=== PATIENT | female | born 1985 | race Two or more races ===

== ENCOUNTER 2019-12-14 11:01 | Emergency (ER) | payer OTHER, SELFPAY ==
--- NOTE | 2019-12-14 | ECG_ITS ---
Test Reason : CHEST PAIN Blood Pressure : / mmHG Vent. Rate : 079 BPM Atrial Rate : 079 BPM P-R Int : 140 ms QRS Dur : 100 ms QT Int : 420 ms P-R-T Axes : 004 022 002 degrees QTc Int : 481 ms Normal sinus rhythm Incomplete right bundle branch block Abnormal ECG When compared with ECG of 07-JUL-2017 16:44, Vent. rate has decreased BY 47 BPM Nonspecific T wave abnormality no longer evident in Lateral leads Referred By: Generic ED Physician Electronically Signed By:TYRONE GIMENEZ MD
[2019-12-14 12:40] VITALS: BP 146/87; PULSE 79; RESP 16; TEMP 36.9; O2SAT 100; BMI 29.2
--- NOTE | 2019-12-14 13:57 | XR_ITS ---
EXAMINATION: XR CHEST CLINICAL INFORMATION: Chest wall pain COMPARISON: Chest radiographs 03/23/2019, 07/07/2017. TECHNIQUE: Portable upright AP view of the chest was obtained. FINDINGS: The lungs are clear. The vascularity is normal. There is no pneumothorax or pleural reaction or effusion. No airspace consolidation. The heart is normal in size. The hilar and mediastinal contours are unremarkable. There is gentle levocurvature thoracic spine which may be positional. IMPRESSION: Unremarkable examination.
[2019-12-14 14:00] VITALS: BP 139/92; PULSE 84; RESP 16; O2SAT 99
[2019-12-14 14:09] LABS: MANUAL DIFF FLAG NO
[2019-12-14 14:11] LABS: Basophils Percent Auto 0.7 % (0-2); Eosinophils Absolute Auto 0.1 X10*3/uL (0.0-0.4); Hematocrit 40.9 % (37-47); Hemoglobin 13.5 g/dl (12.0-16.0); Imm Gran Abs Auto 0.04 X10*3/uL (0.00-0.03); Imm Gran Pct Auto 0.7 % (0.0-0.4); Lymphocytes Absolute Auto 1.7 X10*3/uL (1.2-4.9); Lymphocytes Percent Auto 28.2 % (20-40); Mean Platelet Volume 10.8 fL (9.4-12.3); Monocytes Absolute Auto 0.4 X10*3/uL (0.1-1.2); Monocytes Percent Auto 6.4 % (2-11); Neutrophils Absolute Auto 3.7 X10*3/uL (2.0-8.3); Platelet Count 309 X10*3/uL (160-400); Red Blood Count 4.65 X10*6/uL (4.20-5.50); Red Cell Distribution Width 12.7 % (11.0-16.0)
[2019-12-14] MEDS: 0.9 % Sodium Chloride 1,000 ML 999 ML IVCONT (14:21)
[2019-12-14 14:31] LABS: Glucose Urine UA NEG (NEG); Leukocyte Esterase Urine NEG (NEG); Nitrite Urine NEG (NEG); PH 6.5 (5.0-8.0); Specific Gravity - Urine >= 1.030 (1.005-1.025); Urine Blood 1+ (NEG); Urine Ketones NEG (NEG); Urine Protein 2+ MG/DL (NEG-TRACE)
[2019-12-14 14:33] LABS: Appearance Urine CLOUDY; Color Urine YELLOW
[2019-12-14 14:34] LABS: UPreg QC Valid YES; Urine Pregnancy NEGATIVE (NEGATIVE)
[2019-12-14 14:41] LABS: Alanine Aminotransferase 44 U/L (0-31); Albumin Level 4.6 g/dL (3.5-5.0); Alkaline Phosphatase 87 U/L (39-117); Anion Gap 12 (12-20); Aspartate Amino Transferase 32 U/L (5-31); Bilirubin Total 0.6 mg/dL (0.0-1.0); Blood Urea Nitrogen 13 mg/dL (9-16); Calcium 9.3 mg/dL (8.4-10.2); Carbon Dioxide 26 mmol/L (22-29); Chloride 104 mmol/L (96-108); Creatinine Clr Calc Pharmacy 111.6; Estimated Glomerular Filt Rate > 60; Glucose Random 92 mg/dL (60-115); Potassium 4.1 mmol/l (3.3-5.1); Sodium 138 mmol/L (135-145); Total Protein 8.2 g/dL (6.5-8.0)
[2019-12-14 14:41] LABS: Bacteria Urine 2+ /LPF; Squamous Epithelial Cell Urine 3+ /LPF
[2019-12-14 14:44] LABS: Troponin-I High Sensitivity < 3.5 ng/L (<3.5-17.0)
[2019-12-14 14:52] LABS: Amphetamine Screen Urine Not Detected (Not Detect); Barbiturates, Urine Not Detected (Not Detect); Benzodiazepines Screen Urine Not Detected (Not Detect); Cannabinoid Screen Urine Not Detected (Not Detect); Cocaine Screen Urine Not Detected (Not Detect); Opiate Screen Urine Not Detected (Not Detect); Phencyclidine Screen Urine Not Detected (Not Detect)
[2019-12-14 16:34] VITALS: BP 151/85; PULSE 86; RESP 18; TEMP 36.8; O2SAT 100
[2019-12-14 16:47] LABS: Alanine Aminotransferase 46 U/L (0-31); Albumin Level 4.5 g/dL (3.5-5.0); Alkaline Phosphatase 89 U/L (39-117); Aspartate Amino Transferase 34 U/L (5-31); Bilirubin Direct 0.2 mg/dL (0.0-0.5); Bilirubin Total 0.4 mg/dL (0.0-1.0); Total Protein 8.1 g/dL (6.5-8.0)
--- NOTE | 2019-12-14 17:46 | ED.GENADULT ---
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 No fever, cough, URI symptoms. No lower extremity swelling. No long distance travel. Has tubal ligation not on control. Onset (ago): day(s) Radiation: non-radiation Severity: moderate Severity scale (1-10): 4 Associated symptoms: denies other symptoms Related Data Previous Rx's Medication Instructions Recorded hydroxyzine HCl 25 mg PO BID PRN #20 tab 12/14/19 Allergies Allergy/AdvReac Type Severity Reaction Status Date / Time No Known Allergies Allergy Unverified 11/16/19 17:31 [No Known Allergies*] Review of Systems Review of Systems: Constitutional: No Weight loss, No Fever, No Chills, No Night Sweats, No Fatigue, No Malaise ENT/Mouth: No Hearing loss, No Ear Pain, No Nasal Congestion, No Sinus Pain, No Hoarseness, No sore throat, No Rhinorrhea, No Swallowing Difficulty Eyes: No Eye Pain, No Swelling, No Redness, No Foreign Body, No Discharge, No Vision Changes Cardiovascular: + Chest Pain, No SOB, No Dyspnea on Exertion, No Orthopnea, No Edema, No Palpitations Respiratory: No Cough, No Sputum, No Wheezing, No Smoke Exposure, No Dyspnea Gastrointestinal: No Nausea, No Vomiting, No Diarrhea, No Constipation, No abdominal Pain, No Hematochezia, No Melena Genitourinary: no irregular bleeding, No Dysuria, No Urinary Frequency, No Hematuria, No Urinary Incontinence, No Urgency, No Flank Pain, No Urinary Flow Changes, No Hesitancy Musculoskeletal: No joint pain, No Myalgias, No Joint Swelling Skin: No Skin Lesions, No rash Neuro: No Weakness, No Numbness, No Paresthesias, No Loss of Consciousness, No Dizziness, No Headache Psych: + Anxiety/Panic, No Depression, No SI/HI/AH/VH, No Social Issues, Heme/Lymph: No Bruising, No Bleeding,No Lymphadenopathy Endocrine: No Polyuria, No Polydipsia, No Temperature Intolerance [facility] Past Medical History Attestation statement: The following information was validated with the patient. Medical History (Updated 12/14/19 @ 18:06 by Kehinde Bolanos NP) HTN (hypertension) Social History Social History Smoking Status: Never smoker Smoked in Last 30 Days: No Use of substances other than those prescribed or required for medical reasons: No Advance Directives: No Advance Directives Information Provided: No Physical Exam Vital Signs: Vital Signs: Vital Signs Temp Pulse Resp BP Pulse Ox 12/14/19 16:34 98.2 F 86 18 151/85 H 100 12/14/19 14:00 84 16 139/92 H 99 12/14/19 12:40 98.5 F 79 16 146/87 H 100 Body Mass Index 29.2 Reviewed Const: General: cooperative and healthy appearing; No acute distress or intoxicated appearing Nutritional Appearance: average body habitus Orientation/consciousness: patient oriented x3 HENMT: Head: Yes normal to inspection Ears: hearing grossly normal bilaterally Eyes: General: appearance normal, both eyes and all related structures Visual Campos: normal visual campso by confrontation Neck: Neck: Yes normal visual inspection and No tender Thyroid: Thyroid normal Chest: Chest palpation & inspection: normal inspection of the chest Resp: Effort & Inspection: normal respiratory effort Cardio: Jugular venous distension: no JVD GI: Inspection: Yes normal to inspection Percussion: Yes normal to percussion Auscultation: normal bowel sounds : General: Yes no CVA tenderness Back/Spine/Pelvis: Back: no CVA tenderness Skin: General skin exam: no rashes or lesions noted Neuro: General: patient oriented x3 Extrem: General: Yes normal to inspection Medical Decision Making MDM Narrative Medical decision making narrative: Atypical chest pain, angina, ACS less likely, PE less likely, costochondritis, anxiety Lab Data Result diagrams: 12/14/19 14:04 12/14/19 14:04 Labs: Lab Results 12/14/19 12/14/19 12/14/19 Range/Units 14:04 14:04 14:04 WBC 6.0 (4.8-10.8) X10*3/uL RBC 4.65 (4.20-5.50) X10*6/uL Hgb 13.5 (12.0-16.0) g/dl Hct 40.9 (37-47) % MCV 88.0 (80-98) fL MCH 29.0 (27.0-33.0) pg MCHC 33.0 (31.0-35.0) g/dl RDW 12.7 (11.0-16.0) % Plt Count 309 (160-400) X10*3/uL MPV 10.8 (9.4-12.3) fL Immature Gran % (Auto) 0.7 H (0.0-0.4) % Neut % (Auto) 62.0 (45-73) % Lymph % (Auto) 28.2 (20-40) % [place] % (Auto) 6.4 (2-11) % Eos % (Auto) 2.0 (0-4) % Baso % (Auto) 0.7 (0-2) % Lymph # (Auto) 1.7 (1.2-4.9) X10*3/uL [place] # (Auto) 0.4 (0.1-1.2) X10*3/uL Eos # (Auto) 0.1 (0.0-0.4) X10*3/uL Baso # (Auto) 0.0 (0.0-0.2) X10*3/uL Abs Immat Gran (auto) 0.04 H (0.00-0.03) X10*3/uL Absolute Neuts (auto) 3.7 (2.0-8.3) X10*3/uL Absolute Nucleated RBC 0.000 (0.0-0.012) X10*3/uL Nucleated RBC % (auto) 0.0 (0.0-0.2) /100WBC Sodium 138 (135-145) mmol/L Potassium 4.1 (3.3-5.1) mmol/l Chloride 104 (96-108) mmol/L Carbon Dioxide 26 (22-29) mmol/L Anion Gap 12 (12-20) BUN 13 (9-16) mg/dL Creatinine 0.70 (0.5-1.4) mg/dL Estim Creat Clear Calc 111.6 Estimated GFR > 60 Random Glucose 92 (60-115) mg/dL Calcium 9.3 (8.4-10.2) mg/dL Total Bilirubin 0.6 0.4 (0.0-1.0) mg/dL Direct Bilirubin 0.2 (0.0-0.5) mg/dL AST 32 H 34 H (5-31) U/L ALT 44 H 46 H (0-31) U/L Alkaline Phosphatase 87 89 (39-117) U/L Troponin I High Sens (<3.5-17.0) ng/L Total Protein 8.2 H 8.1 H (6.5-8.0) g/dL Albumin 4.6 4.5 (3.5-5.0) g/dL Urine Color Urine Appearance Urine pH (5.0-8.0) Ur Specific [place] (1.005-1.025) Urine Protein (NEG-TRACE) MG/DL Urine Glucose (UA) (NEG) MG/DL Urine Ketones (NEG) MG/DL Urine Blood (NEG) Urine Nitrite (NEG) Ur Leukocyte Esterase (NEG) Urine RBC (0) /HPF Urine WBC (0-4) /HPF Ur Squamous Epith Cells /LPF Urine Bacteria /LPF Urine Test (NEGATIVE) Urine Opiates Screen (Not Detect) Ur Barbiturates Screen (Not Detect) Ur Phencyclidine Scrn (Not Detect) Ur Amphetamines Screen (Not Detect) U Benzodiazepines Scrn (Not Detect) Urine Cocaine Screen (Not Detect) U Marijuana (THC) Screen (Not Detect) 12/14/19 12/14/19 12/14/19 Range/Units 14:04 14:23 14:23 WBC (4.8-10.8) X10*3/uL RBC (4.20-5.50) X10*6/uL Hgb (12.0-16.0) g/dl Hct (37-47) % MCV (80-98) fL MCH (27.0-33.0) pg MCHC (31.0-35.0) g/dl RDW (11.0-16.0) % Plt Count (160-400) X10*3/uL MPV (9.4-12.3) fL Immature Gran % (Auto) (0.0-0.4) % Neut % (Auto) (45-73) % Lymph % (Auto) (20-40) % [place] % (Auto) (2-11) % Eos % (Auto) (0-4) % Baso % (Auto) (0-2) % Lymph # (Auto) (1.2-4.9) X10*3/uL [place] # (Auto) (0.1-1.2) X10*3/uL Eos # (Auto) (0.0-0.4) X10*3/uL Baso # (Auto) (0.0-0.2) X10*3/uL Abs Immat Gran (auto) (0.00-0.03) X10*3/uL Absolute Neuts (auto) (2.0-8.3) X10*3/uL Absolute Nucleated RBC (0.0-0.012) X10*3/uL Nucleated RBC % (auto) (0.0-0.2) /100WBC Sodium (135-145) mmol/L Potassium (3.3-5.1) mmol/l Chloride (96-108) mmol/L Carbon Dioxide (22-29) mmol/L Anion Gap (12-20) BUN (9-16) mg/dL Creatinine (0.5-1.4) mg/dL Estim Creat Clear Calc Estimated GFR Random Glucose (60-115) mg/dL Calcium (8.4-10.2) mg/dL Total Bilirubin (0.0-1.0) mg/dL Direct Bilirubin (0.0-0.5) mg/dL AST (5-31) U/L ALT (0-31) U/L Alkaline Phosphatase (39-117) U/L Troponin I High Sens < 3.5 (<3.5-17.0) ng/L Total Protein (6.5-8.0) g/dL Albumin (3.5-5.0) g/dL Urine Color YELLOW Urine Appearance CLOUDY Urine pH 6.5 (5.0-8.0) Ur Specific [place] >= 1.030 H (1.005-1.025) Urine Protein 2+ H (NEG-TRACE) MG/DL Urine Glucose (UA) NEG (NEG) MG/DL Urine Ketones NEG (NEG) MG/DL Urine Blood 1+ H (NEG) Urine Nitrite NEG (NEG) Ur Leukocyte Esterase NEG (NEG) Urine RBC 5-9 H (0) /HPF Urine WBC 1-4 (0-4) /HPF Ur Squamous Epith Cells 3+ /LPF Urine Bacteria 2+ /LPF Urine Test NEGATIVE (NEGATIVE) Urine Opiates Screen Not Detected (Not Detect) Ur Barbiturates Screen Not Detected (Not Detect) Ur Phencyclidine Scrn Not Detected (Not Detect) Ur Amphetamines Screen Not Detected (Not Detect) U Benzodiazepines Scrn Not Detected (Not Detect) Urine Cocaine Screen Not Detected (Not Detect) U Marijuana (THC) Screen Not Detected (Not Detect) Imaging Data Chest x-ray: Attestation: I personally reviewed and interpreted this imaging study as follows: Radiologist's impression: [address] [address] XRay Report Signed Patient: Deep Ballard#: [id number] : 1985Acct:[id number] Age/Sex: 34 / FADM Date: 12/14/19 Loc: .ED Attending Dr: Ordering Physician: Kehinde Bolanos NP Date of Service: 12/14/19 Procedure(s): XR chest 1V Accession Number(s): [id number] cc: Kehinde Bolanos NP~ EXAMINATION: XR CHEST CLINICAL INFORMATION: Chest wall pain COMPARISON: Chest radiographs 03/23/2019, 07/07/2017. TECHNIQUE: Portable upright AP view of the chest was obtained. FINDINGS: The lungs are clear. The vascularity is normal. There is no pneumothorax or pleural reaction or effusion. No airspace consolidation. The heart is normal in size. The hilar and mediastinal contours are unremarkable. There is gentle levocurvature thoracic spine which may be positional. IMPRESSION: Unremarkable examination. Dictated By:MIKAYLA STEPHENSON MD Signed By:<Electronically signed by MIKAYLA STEPHENSON MD in OV>12/14/19 1429 DD/ 1357 TD/TT: Freelance Art Director: ROMMEL ECG Data Interpretation: Normal sinus rhythm Rate [address] Discharge Plan Discharge Clinical Impression: Atypical chest pain, Anxiety Patient Disposition: Home, Self-Care Instructions: Chest Pain (ED), Anxiolysis in Adults (ED) Prescriptions: New hydroxyzine HCl 25 mg tablet 25 mg PO BID PRN (Reason: nausea and vomiting) Qty: 20 RF: 0
== END 2019-12-14 18:31 | disposition home or self-care (01) ==
PROVIDERS: Nurse Practitioner Primary Care; Emergency Provider Emergency Medicine
DX: R07.89 Other chest pain (principal); F41.9 Anxiety disorder, unspecified; I10 Essential (primary) hypertension; Z79.899 Other long term (current) drug therapy
CPT/HCPCS: 36415; 71045; 80053; 80076; 80307; 81001; 81025; 82248; 84484; 85025; 93005; 96360; 99284

== ENCOUNTER 2020-03-08 10:40 | Outpatient (REF) | payer OTHER, SELFPAY | END 2020-03-08 10:41 | disposition home or self-care (01) | LOC: HO.LAB 10:40 | PROVIDERS: Visit Provider Internal Medicine | DX: Z20.822 Contact with and (suspected) exposure to COVID-19 (principal) | CPT/HCPCS: 36415; C9803; U0003 ==

== ENCOUNTER → 2020-12-25 14:36 | Outpatient (BNVA) | payer MEDICAID, SELFPAY | PROVIDERS: PCP Nurse Practitioner Family; Referring Provider Nurse Practitioner Family; Visit Provider Internal Medicine | DX: R00.2 Palpitations (principal); F41.9 Anxiety disorder, unspecified; Z79.899 Other long term (current) drug therapy | CPT/HCPCS: 93005; 99202 ==

== ENCOUNTER → 2021-01-28 13:49 | Outpatient (REF) | payer MEDICAID, SELFPAY ==
--- NOTE | 2021-01-28 14:13 | ECG_ITS ---
Hook-up date: 2021-01-28 15:16:00 Duration: 39:31:00 Test Indications: PALPITATIONS Medications: [id number] QRS complexes * Ventricular ectopics which represent % of total QRS comp. * Supraventricular ectopics which represent % of total QRS comp. * Paced QRS complexs which represent % of total QRS comp. VENTRICULAR ECTOPY * Isolated * Bigeminal Cycles * Couplets * Runs * Beats in Runs * Beats LONGEST at * BPM at :: -- * Beats FASTEST at * BPM at :: -- SUPRAVENTRICULAR ECTOPY * Isolated * Couplets * Runs * Beats in Runs * Beats LONGEST at * BPM at :: -- * Beats FASTEST at * BPM at :: -- HEART RATES 57 MIN at 05:02:10 2021-01-29 88 AVG 145 MAX at 14:47:00 2021-01-29 LONGEST RR 1.1680 secs at 08:42:14 2021-01-29 S-T LEVELS Channel 1 - 128 mm at 15:16:00 2021-01-28 - 128 mm at 15:16:00 2021-01-28 Channel 2 - 128 mm at 15:16:00 2021-01-28 - 128 mm at 15:16:00 2021-01-28 Channel 3 - 128 mm at 03:43:51 -- - 128 mm at 03:43:51 Basic rhythm Normal sinus rhythm No long pause or profound bradycardia Frequent Sinus tachycardia , 32% of time HR > 100 bpm No dangerous dysrhythm periods Patient did not report any symptoms in the diary Referred By: Jose Raul Sanchez Overread By: AMRIK GOMEZ MD
--- NOTE | 2021-01-28 14:13 | CA_ITS ---
Transthoracic Echocardiogram Patient (Last, First, Middle): Meredith Ballard, Gender: Female Date of : 1985 Age: 36 Procedure Date: 01/28/2021 Procedure Type: Transthoracic Echocardiogram Location: OP Height: 162.56 cm Weight: 81.65 kg BSA: 1.87 m2 Heart Rate: bpm BP: 122 / 82 mmHg Irish Moss Bleacher: VH/CP Referring MD: Jose Raul Sanchez MD Symptoms: R00.2 - Palpitations Study Quality: Fair ECG Rhythm: Sinus Conclusions: - The left ventricular systolic function is normal. The visually estimated ejection fraction is between 60-65%. - No obvious valvular pathology seen on this study. Findings Left Ventricle Normal left ventricular cavity size. There is normal left ventricular wall thickness. The left ventricular systolic function is normal. The visually estimated ejection fraction is between 60-65%. There is no evidence of regional wall motion abnormalities. Diastolic function is normal for age. Right Ventricle Normal right ventricular cavity size and systolic function. Atria The left atrium is normal in size. The right atrium is normal in size. Aortic Valve There is a normal trileaflet aortic valve. There is no aortic valve stenosis. There is no aortic valve regurgitation. Mitral Valve The mitral valve appears normal. There is trace mitral valve regurgitation. There is no mitral valve stenosis. Pulmonic Valve The pulmonic valve was not well visualized. Tricuspid Valve Normal tricuspid valve structure. There is trace tricuspid valve regurgitation. The pulmonary artery systolic pressure is normal. Great Vessels The aortic annulus, sinuses of valsalva, asc aorta, and aortic arch are normal in size. Venous The inferior vena cava is normal in size and collapses greater than 50% with inspiration. Pericardium/Pleural There is no evidence of pericardial effusion. Prior Study Comparison No prior study available for comparison. Recommendations, Care & Conclusions No obvious valvular pathology seen on this study. Measurements 2D Linear Measurements IVSd: 0.83 0.6-0.9/0.6-1.0 cm LVIDd: 5.16 3.9-5.3/4.2-5.9 cm LVIDd Index: 2.76 2.4-3.2/2.2-3.1 cm/m2 LVIDs: 3.64 2.0-3.6 cm LVPWd: 0.82 0.7-1.1 cm Ao Root: 2.70 2.1-3.5 cm LA Diam: 3.00 2.7-3.8/3.0-4.0 cm LAIDs Index: 1.60 1.5-2.3 cm/m2 LV Mass: 186.15 67-162/88-224 g LV Mass Index: 99.55 43-95/49-115 g/m2 LVOT Diam: 2.00 3.0+(-)1.3 cm 2D Systolic Function EF 4C: 56.30 >55% EF 2C: 63.20 >55% EF BiP: 59.70 >55% Mitral Valve MV Pk E: 1.15 MV PK A: 0.90 MV Decel Time: 174.00 E/A: 1.30 E'Lateral: 11.50 E'Medial: 10.10 E/E' Med: 11.40 E/E' Lat: 10.00 PHT: 51.00 MVA PHT: 4.31 Decel Navarro: 6.58 Aortic Valve AoV Pk Walt: 1.42 AoV Mn Walt: 0.93 AoV VTI: 0.29 AoV Pk Grad: 8.00 Aov Mn Grad: 4.00 KIM Cont.VTI: 2.09 LVOT LVOT Pk Walt: 0.87 LVOT Mn Walt: 0.65 LVOT VTI: 0.19 LVOT Pk Grad: 3.00 LVOT Mn Grad: 2.00 LVOT Diam: 2.00 LVOT Area: 3.14 Diastolic Function MV Pk E: 1.15 MV Pk A: 0.90 E/A: 1.30 E'Medial: 10.10 E/E' Med: 11.40 E' Laterial: 11.50 E/E' Lat: 10.00 Right Ventricle TAPSE (mm): 21.00 TVS' Walt: 12.00 Tricuspid Valve TR Pk Walt: 1.54 TR Pk Grad: 9.00 Great Vessels Aorta Ao Root-2D: 2.70 2.0-3.7 cm Ao Asc: 3.10 2.1-3.4 cm Ao Arch: 2.70 Updated in Other Vendor System with Status of Final Jose Raul Sanchez MD electronically signed on 01/29/2021 12:02:03 PM with status of Final
== END ==
LOC: HO.CARD 13:49
PROVIDERS: Visit Provider Internal Medicine
DX: R00.2 Palpitations (principal)
CPT/HCPCS: 93226; 93306

== ENCOUNTER 2021-03-03 12:00 | Emergency (ER) | payer MEDICAID, SELFPAY ==
--- NOTE | ~2021-03-03 | XR_ITS ---
EXAMINATION: XR CHEST CLINICAL INFORMATION: SOB, COVID positive. Diminished breath sounds. COMPARISON: Chest 12/14/2019 TECHNIQUE: Frontal view of the chest was obtained. FINDINGS: No significant abnormality is noted involving the heart, lungs, mediastinum, bony thorax or soft tissues. XR/XR chest 1V IMPRESSION: Unremarkable chest exam.
[2021-03-03 12:33] VITALS: BP 154/102; PULSE 120; RESP 20; TEMP 38; O2SAT 98; BMI 30.9
[2021-03-03] MEDS: Acetaminophen 325 MG TABLET 650 MG PO (12:39)
[2021-03-03 12:54] LABS: COVID-19 Test Positive (Negative); IDNOW Serial# 9DD0AD1C
--- NOTE | 2021-03-03 14:21 | ED_ITS ---
HPI - URI/Sore Throat General Chief Complaint: Upper Respiratory Symptoms Stated Complaint: chest pain,cough,hicks Time Seen by Provider: 03/03/21 13:49 Source: patient Mode of arrival: ambulatory Limitations: no limitations History of Present Illness HPI Narrative: This is a 36-year-old female past medical history hypertension presents to the emergency department with complaints of headache, sore throat, dry nonproductive cough, myalgias since this morning. Patient tells me that she woke up and suddenly started experiencing these symptoms. She she tells me she has chest discomfort when she coughs however she does not report chest pain. She tells me that this headache feels like her typical headache, no vision changes or dizziness. She tells me she does not understand, because she is vaccinated against COVID-19. She has any sick contacts that she knows of. She denies shortness of breath, chest pain, fevers, chills, nausea, vomiting, abdominal pain. MD elicited complaint: cough, sore throat and other (Headache) Onset (ago): day(s) (1) Consistency: constant Severity: mild Able to tolerate fluids by mouth: Yes Exacerbating factors: nothing Relieving factors: nothing Associated symptoms: headache, nasal congestion and cough Treatments prior to arrival: none Related Data Home Medications Medication Instructions Recorded Confirmed cholecalciferol (vitamin D3) 50 50 mcg PO DAILY 12/25/20 12/25/20 mcg (2,000 unit) capsule hydroxyzine HCl 10 mg tablet 10 - 20 mg PO BID PRN 12/25/20 12/25/20 Allergies Allergy/AdvReac Type Severity Reaction Status Date / Time No Known Allergies Allergy Verified 12/25/20 14:43 [No Known Allergies*] Review of Systems Review of Systems: Constitutional : No Fever, No Chills, positive fatigue, positive Malaise ENT/Mouth : positive sore throat, positive runny nose Eyes: No Discharge, No vision changes Cardiovascular : No Chest Pain, No SOB Respiratory : No Cough, No Sputum Gastrointestinal : No Nausea, No Vomiting, No Diarrhea Genitourinary : No Dysuria, No Urinary Frequency Musculoskeletal : positive Myalgia Skin : No rash Neuro : positive Headache, No weakness, No dizziness Yes all other systems are reviewed and are negative PMFSH Past Medical History Attestation statement: The following information was validated with the patient. Source: old records reviewed and nursing notes reviewed Medical History (Updated 03/03/21 @ 13:50 by ADAM Alcantara) HTN (hypertension) Surgical History (Updated 12/25/20 @ 14:44 by FRANCISCO J South) No pertinent past surgical history Family History Family History (Updated 12/25/20 @ 14:44 by FRANCISCO J South) Father No problems noted. Mother No problems noted. Social History Social History (Updated 12/25/20 @ 14:43 by FRANCISCO J South) Patient Tobacco Use Status: Never used Tobacco Advance Directives: No Advance Directives Information Provided: No Patient : No Physical Exam Vital Signs: Vital Signs: Last Vital Signs Temp 100.4 F 03/03/21 12:33 Pulse 120 H 03/03/21 12:33 Resp 20 03/03/21 12:33 BP 154/102 H 03/03/21 12:33 Pulse Ox 98 03/03/21 12:33 BMI result Body Mass Index 30.9 Patient is noted to be tachycardic, hypertensive, febrile. Appearance: Alert.? Oriented X3.? No acute distress.? Head: Normocephalic, atraumatic, no step-offs or deformities Eyes: Pupils equal, round and reactive to light.? ENT: Pharynx normal.? Neck: Normal inspection.? Neck supple.? CVS: Normal heart rate and rhythm.? Pulses normal.? Respiratory: No respiratory distress.? Breath sounds diminished bilaterally. Abdomen: Soft and nontender.? Skin: Skin warm and dry.? Normal skin color.? Normal skin turgor.? Extremities: No lower extremity edema.? No calf ttp. 5/5 strength to bilateral upper and lower extremities Back: No midline tenderness, no C-spine tenderness, full range of motion, no CVA tenderness bilaterally Neuro: Oriented X 3.? No motor deficit.? No sensory deficit. Course Reevaluation(s) Reevaluation #1: Patient is still tachycardic however likely secondary to viral infection. Unlikely that this is PE. Patient's x-ray with no signs of pneumonia. Patient is saturating well on room air she is 98%. Vital signs are stable. I have given her strict return precautions and have advised her to return with new or worsening symptoms. Feel comfortable with discharge home. Patient's symptoms are likely secondary to COVID-19. She was given Tylenol for fever here. Time: 15:01 MDM - URI/Sore Throat MDM Narrative Medical decision making narrative: 1435 36 yo F pmhx HTN presents w/ headache, sore throat, dry nonproductive cough w/ a ssociated chest discomfort, myalgias since this morning. Patient denies chest pain shortness of breath. Physical examination significant for diminished breath sounds bilaterally. Plan at this time is to obtain COVID swab, and chest x-ray. Medical Records Attestation: I reviewed the patient's medical records. Lab Data Attestation: I reviewed the patient's lab results. Labs: Lab Results 03/03/21 Range/Units 12:43 COVID-19 (LAUAR) Positive A (Negative) COVID-19 Clin Com See Note Imaging Data Chest x-ray: Attestation: I personally reviewed and interpreted this imaging study as follows: Radiologist's impression: FINDINGS: No significant abnormality is noted involving the heart, lungs, mediastinum, bony thorax or soft tissues. XR/XR chest 1V IMPRESSION: Unremarkable chest exam. Critical Care Time Critical Care Time Critical Care Time: No Discharge Plan Discharge Clinical Impression: COVID-19 Patient Disposition: Home, Self-Care Instructions: COVID-19 (Coronavirus Disease 2019) (ED) Additional Instructions: Take your medications as prescribed. If you were prescribed antibiotics today, it is important that you take your medication to their entirety, do not skip any doses, do not finish them early. Today you tested positive for COVID-19. Take Ibuprofen or Tylenol as needed for fevers or body aches. Quarantine for 7 days and ensure you wear a mask. After 7 days you should wear a mask for 3 days after that. Practice social distancing and good hand hygiene. Drink plenty of fluids. Follow-up with your primary care provider this week. Take ibuprofen every 6 hours, Tylenol every 4 as needed for fevers/body aches. Return to the emergency department with new or worsening symptoms. In case of emergency call 911 You can purchase a pulse oximeter from your local pharmacy or grocery store, and monitor your oxygen saturation if it goes below 94% you should return to the emergency department for further evaluation. Prescriptions: No Action cholecalciferol (vitamin D3) 50 mcg (2,000 unit) capsule 50 mcg PO DAILY RF: 0 hydroxyzine HCl 10 mg tablet 10 - 20 mg PO BID PRN (Reason: anxiety) RF: 0 Referrals: [facility] [Primary Care Provider] - 2 days Stand Alone Forms: Work/School Release
[2021-03-03 15:02] VITALS: BP 129/78; PULSE 109; RESP 19; TEMP 36.3; O2SAT 98
== END 2021-03-03 15:11 | disposition home or self-care (01) ==
PROVIDERS: Emergency Provider Emergency Medicine
DX: U07.1 COVID-19 (principal); I10 Essential (primary) hypertension
CPT/HCPCS: 36415; 71045; 87635; 99283; 99284

== ENCOUNTER 2021-03-11 11:50 | Outpatient (REF) | payer MEDICAID, SELFPAY ==
[2021-03-11 13:44] LABS: Binax Internal Control QC Valid; Binax Now Covid-19 Ag Negative (Negative)
== END 2021-03-11 11:51 | disposition home or self-care (01) ==
LOC: HO.LAB 11:50
PROVIDERS: Visit Provider Internal Medicine
DX: Z20.822 Contact with and (suspected) exposure to COVID-19 (principal)
CPT/HCPCS: C9803

== ENCOUNTER 2021-09-30 13:47 | Outpatient (REF) | payer MEDICAID, SELFPAY ==
[2021-09-30 17:12] LABS: CT PCR NOT DETECTED (Not Detect.); NG PCR NOT DETECTED (Not Detect.)
[2021-10-01 11:04] LABS: BV Int Neg Control Negative (Negative); BV Int Pos Control Positive (Positive)
[2021-10-06 22:46] LABS: HPV 16 RNA NOT DETECTED (NOT DETECTED); HPV mRNA E6/E7 rflx Detected (Not Detected)
== END 2021-09-30 13:48 | disposition home or self-care (01) ==
LOC: HO.LAB 13:47
PROVIDERS: Visit Provider Advanced Practice Midwife
DX: Z01.419 Encounter for gynecological examination (general) (routine) without abnormal findings (principal); Z11.3 Encounter for screening for infections with a predominantly sexual mode of transmission; Z11.51 Encounter for screening for human papillomavirus (HPV)
CPT/HCPCS: 87480; 87491; 87510; 87591; 87624; 87625; 87660; 88142

== ENCOUNTER 2022-01-08 13:20 | Outpatient (REF) | payer MEDICAID, SELFPAY ==
--- NOTE | ~2022-01-08 | US_ITS ---
EXAMINATION: US PELVIS CLINICAL INFORMATION: Amenorrhea COMPARISON: CT abdomen pelvis 02/19/2016 TECHNIQUE: Ultrasound of the pelvis is performed using both transabdominal and transvaginal transducers along with Doppler. Transvaginal imaging is performed due to inadequate visualization transabdominally. FINDINGS: Uterus: The uterus is anteverted and measures 9.1 x 6.0 x 6.6 cm. Possible arcuate versus partially septate morphology of the uterus. The double wall endometrial thickness is 14 mm. scar in the anterior lower uterine segment. Nabothian cysts in the cervix. Trace fluid within the endocervical canal. The uterus is smooth in contour and has normal myometrial echogenicity. No visible fibroid. Adnexa: Both ovaries are visualized. There is normal color flow to the adnexa. There is no ovarian torsion. There is no pelvic ascites or fluid collection. Right ovary measures 4.8 x 1.6 x 2.0 cm. Left ovary measures 3.8 x 1.6 x 2.2 cm. US/US pelvic and transvaginal IMPRESSION: 1. Possible arcuate versus partially septate morphology of the uterus. 2. Trace fluid within the endocervical canal.
== END 2022-01-08 13:21 | disposition home or self-care (01) ==
LOC: HO.US 13:20
PROVIDERS: Visit Provider Advanced Practice Midwife
DX: N91.2 Amenorrhea, unspecified (principal); Z20.2 Contact with and (suspected) exposure to infections with a predominantly sexual mode of transmission; Z87.42 Personal history of other diseases of the female genital tract
CPT/HCPCS: 76830; 76856

== ENCOUNTER → 2022-01-15 11:19 | Outpatient (BNVA) | payer MEDICAID, SELFPAY | PROVIDERS: Visit Provider Advanced Practice Midwife | DX: Q51.810 Arcuate uterus (principal); N94.6 Dysmenorrhea, unspecified; Z98.890 Other specified postprocedural states; Z87.42 Personal history of other diseases of the female genital tract | CPT/HCPCS: 99212 ==

== ENCOUNTER 2022-06-12 14:11 | Emergency (ER) | payer MEDICAID, SELFPAY ==
[2022-06-12 14:22] VITALS: BP 157/99; PULSE 89; RESP 18; TEMP 36.6; O2SAT 98; BMI 31.0
--- NOTE | 2022-06-12 14:23 | ED_ITS ---
HPI - General Adult General Chief complaint: Eye Problems <ADAM Summers - Last Filed: 06/12/22 14:25> Stated complaint: Eye Pressure Blurriness <ADAM Summers - Last Filed: 06/12/22 14:25> Time Seen by Provider: 06/12/22 14:53 <ADAM Summers - Last Filed: 06/12/22 14:25> History of Present Illness HPI narrative: Patient complains of some blurriness in the right eye as well as a feeling of pressure and irritation and she noticed she had a stye in the right eye upper outer corner She has had poor vision in this right eye for a long time and does not think her visual acuity has changed recently She has no eye pain no photophobia no pain with movement of the eyes, the right eye has been tearing, no thick yellow discharge no crusting <ADAM Mckeon - Last Filed: 06/13/22 20:27> Related Data Home medications: Home Medications Medication Instructions Recorded Confirmed cholecalciferol (vitamin D3) 50 50 mcg PO DAILY 12/25/20 01/15/22 mcg (2,000 unit) capsule hydroxyzine HCl 10 mg tablet 10 - 20 mg PO BID PRN anxiety 12/25/20 01/15/22 Previous Rx's Medication Instructions Recorded medroxyprogesterone 10 mg tablet 10 mg PO DAILY #10 tabs 09/30/21 (Provera) miconazole nitrate 2 % topical 1 appl topical BID #85 grams 09/30/21 powder erythromycin 5 mg/gram (0.5 %) eye 0.5 inch ophthalmic (eye) TID 5 06/12/22 ointment days #3.5 grams <ADAM Summers - Last Filed: 06/12/22 14:25> Allergies/adverse reactions: Allergies Allergy/AdvReac Type Severity Reaction Status Date / Time No Known Allergies Allergy Verified 01/15/22 11:31 [No Known Allergies*] <ADAM Summers - Last Filed: 06/12/22 14:25> PMFSH Past Medical History Source: nursing notes reviewed <ADAM Mckeon - Last Filed: 06/13/22 20:27> Medical History: Medical History (Updated 06/13/22 @ 00:03 by Guillermina Gonzalez) HTN (hypertension) <ADAM Summers - Last Filed: 06/12/22 14:25> Surgical History: Surgical History (Updated 01/15/22 @ 11:33 by FRANCISCO J uSnshine) H/O tubal ligation Hx of section <ADAM Summers - Last Filed: 06/12/22 14:25> Family History Family History: Family History Father No problems noted. Mother No problems noted. <ADAM Summers - Last Filed: 06/12/22 14:25> Social History Social History: Social History Patient Tobacco Use Status: Never used Tobacco Advance Directives: No Advance Directives Information Provided: Yes <ADAM Summers - Last Filed: 06/12/22 14:25> Physical Exam ED Vital Signs: Vital Signs - 24 hr 06/12/22 14:22 Temperature 97.8 F Pulse Rate 89 Respiratory Rate 18 Blood Pressure 157/99 H Pulse Oximetry 98 Oxygen Delivery Method Room Air BMI result Body Mass Index 31.0 <ADAM Summers - Last Filed: 06/12/22 14:25> Vital Signs - 24 hr 06/12/22 14:22 Temperature 97.8 F Pulse Rate 89 Respiratory Rate 18 Blood Pressure 157/99 H Pulse Oximetry 98 Oxygen Delivery Method Room Air BMI result Body Mass Index 31.0 <ADAM Mckeon - Last Filed: 06/13/22 20:27> General appearance is no acute distress Head is normocephalic atraumatic Eye exam visual acuity in the left eye was normal 2020 visual acuity in the right eye was only able to see the E at the top of the chart, patient does claim that it has been this way for some time and this is not an acute change There is a small stye in the left upper lid, there is no conjunctival inflammation, the eye is not red, pupils are equal round and reactive to light, extraocular motions are intact and painless Staining with fluorescein did not reveal any abrasion or ulceration Intra-ocular pressure was 22 in the right eye and 17 in the left eye Neck is supple Respiratory no distress Extremities full range of motion x4 Neuro no focal deficits <ADAM Mckeon - Last Filed: 06/13/22 20:27> Course Course Course Narrative: RME performed by Cecile Resendez PA-C. Patient is a 37 year old assigned female at presenting to the emergency department with bilateral eye pressure and pain. Patient states she is also having blurry vision. Lab and imaging ordered. Patient placed back in the waiting room pending room availability and results. <ADAM Summers Last Filed: 06/12/22 14:25> RME performed by Cecile Resendez PA-C. Patient is a 37 year old assigned female at presenting to the emergency department with bilateral eye pressure and pain. Patient states she is also having blurry vision. Lab and imaging ordered. Patient placed back in the waiting room pending room availability and results. Right eye intra-ocular pressure was 22, left eye was 17 Visual acuity in the right eye was unable to read the chart, left eye was 2020 She does not think this is an acute or new change in her eye and she has had trouble seeing out of the right eye for many years Fluorescein staining did not reveal any abrasions or ulcerations in the right eye Patient is treated with erythromycin ointment for the right eye stye , advised to apply a warm soak For her long-standing loss of vision in her right eye she is advised to follow closely with an eye doctor for a full evaluation She will return for any worsening eye pain vision loss any worse condition or any concerns <ADAM Mckeon - Last Filed: 06/13/22 20:27> Medications Administered Discontinued Medications Generic Name Dose Route Start Last Admin Trade Name Freq PRN Reason Stop Dose Admin Fluorescein Sodium 1 strip 06/12/22 15:10 06/12/22 15:55 Fluorescein Sodium Strip EYE-RIGHT 06/12/22 15:11 1 strip ONCE ONE Administration Tetracaine HCl 1 drop 06/12/22 15:10 06/12/22 15:56 Tetracaine Hcl/Pf 0.5% Oph Nadya 4 Ml Drops EYE-LEFT 06/12/22 15:11 1 drop ONCE ONE Administration <ADAM Summers Last Filed: 06/12/22 14:25> Medications Administered Discontinued Medications Generic Name Dose Route Start Last Admin Trade Name Freq PRN Reason Stop Dose Admin Fluorescein Sodium 1 strip 06/12/22 15:10 06/12/22 15:55 Fluorescein Sodium Strip EYE-RIGHT 06/12/22 15:11 1 strip ONCE ONE Administration Tetracaine HCl 1 drop 06/12/22 15:10 06/12/22 15:56 Tetracaine Hcl/Pf 0.5% Oph Nadya 4 Ml Drops EYE-LEFT 06/12/22 15:11 1 drop ONCE ONE Administration <ADAM Mckeon - Last Filed: 06/13/22 20:27> Medical Decision Making Lab Data Result Diagrams: 06/12/22 14:36 06/12/22 14:36 <ADAM Summers - Last Filed: 06/12/22 14:25> Labs: Lab Results 06/12/22 06/12/22 Range/Units 14:36 14:36 WBC 7.1 (4.8-10.8) X10*3/uL RBC 4.55 (4.20-5.50) X10*6/uL Hgb 13.2 (12.0-16.0) g/dl Hct 39.1 (37.0-47.0) % MCV 85.9 (80.0-98.0) fL MCH 29.0 (27.0-33.0) pg MCHC 33.8 (31.0-35.0) g/dl RDW 12.9 (11.0-16.0) % Plt Count 331 (160-400) X10*3/uL MPV 10.6 (9.4-12.3) fL Immature Gran % (Auto) 0.1 (0.0-0.4) % Neut % (Auto) 61.0 (45-73) % Lymph % (Auto) 26.5 (20-40) % Wilcox % (Auto) 8.3 (2-11) % Eos % (Auto) 3.1 (0-4) % Baso % (Auto) 1.0 (0-2) % Lymph # (Auto) 1.9 (1.2-4.9) X10*3/uL Wilcox # (Auto) 0.6 (0.1-1.2) X10*3/uL Eos # (Auto) 0.2 (0.0-0.4) X10*3/uL Baso # (Auto) 0.1 (0.0-0.2) X10*3/uL Abs Immat Gran (auto) 0.01 (0.00-0.03) X10*3/uL Absolute Neuts (auto) 4.3 (2.0-8.3) x10*3/uL Absolute Nucleated RBC 0.000 (0.0-0.012) X10*3/uL Nucleated RBC % (auto) 0.0 (0.0-0.2) /100WBC Sodium 141 (135-145) mmol/L Potassium 4.3 (3.3-5.1) mmol/L Chloride 106 (96-108) mmol/L Carbon Dioxide 25 (22-29) mmol/L Anion Gap 14 (12-20) BUN 15 (9-16) mg/dL Creatinine 0.80 (0.5-1.4) mg/dL Estim Creat Clear Calc 97.8 Estimated GFR > 60 Random Glucose 90 (60-115) mg/dL Calcium 9.7 (8.4-10.2) mg/dL Magnesium 2.1 (1.6-2.6) mg/dL Total Bilirubin 0.3 (0.0-1.0) mg/dL AST 29 (5-31) U/L ALT 54 H (0-31) U/L Alkaline Phosphatase 97 (39-117) U/L Total Protein 8.0 (6.5-8.0) g/dL Albumin 4.5 (3.5-5.0) g/dL <ADAM Summers - Last Filed: 06/12/22 14:25> Lab Results 06/12/22 06/12/22 Range/Units 14:36 14:36 WBC 7.1 (4.8-10.8) X10*3/uL RBC 4.55 (4.20-5.50) X10*6/uL Hgb 13.2 (12.0-16.0) g/dl Hct 39.1 (37.0-47.0) % MCV 85.9 (80.0-98.0) fL MCH 29.0 (27.0-33.0) pg MCHC 33.8 (31.0-35.0) g/dl RDW 12.9 (11.0-16.0) % Plt Count 331 (160-400) X10*3/uL MPV 10.6 (9.4-12.3) fL Immature Gran % (Auto) 0.1 (0.0-0.4) % Neut % (Auto) 61.0 (45-73) % Lymph % (Auto) 26.5 (20-40) % Wilcox % (Auto) 8.3 (2-11) % Eos % (Auto) 3.1 (0-4) % Baso % (Auto) 1.0 (0-2) % Lymph # (Auto) 1.9 (1.2-4.9) X10*3/uL Wilcox # (Auto) 0.6 (0.1-1.2) X10*3/uL Eos # (Auto) 0.2 (0.0-0.4) X10*3/uL Baso # (Auto) 0.1 (0.0-0.2) X10*3/uL Abs Immat Gran (auto) 0.01 (0.00-0.03) X10*3/uL Absolute Neuts (auto) 4.3 (2.0-8.3) x10*3/uL Absolute Nucleated RBC 0.000 (0.0-0.012) X10*3/uL Nucleated RBC % (auto) 0.0 (0.0-0.2) /100WBC Sodium 141 (135-145) mmol/L Potassium 4.3 (3.3-5.1) mmol/L Chloride 106 (96-108) mmol/L Carbon Dioxide 25 (22-29) mmol/L Anion Gap 14 (12-20) BUN 15 (9-16) mg/dL Creatinine 0.80 (0.5-1.4) mg/dL Estim Creat Clear Calc 97.8 Estimated GFR > 60 Random Glucose 90 (60-115) mg/dL Calcium 9.7 (8.4-10.2) mg/dL Magnesium 2.1 (1.6-2.6) mg/dL Total Bilirubin 0.3 (0.0-1.0) mg/dL AST 29 (5-31) U/L ALT 54 H (0-31) U/L Alkaline Phosphatase 97 (39-117) U/L Total Protein 8.0 (6.5-8.0) g/dL Albumin 4.5 (3.5-5.0) g/dL <ADAM Mckeon - Last Filed: 06/13/22 20:27> Discharge Plan Discharge Clinical Impression: Hordeolum externum of right eye, Vision loss of right eye <ADAM Summers - Last Filed: 06/12/22 14:25> Patient Disposition: Home, Self-Care <ADAM Summers - Last Filed: 06/12/22 14:25> Additional Instructions: Follow with eye doctor for further evaluation of her longstanding vision loss in the right eye The measured eye pressure in both eyes was okay Treatment for a small stye is apply the antibiotic ointment 3 times a day, apply warm soak and if it does not get better follow with the eye doctor Return to the emergency room any time for any eye pain, any new vision loss any worse condition or any concerns <ADAM Summers - Last Filed: 06/12/22 14:25> Prescriptions: New erythromycin 5 mg/gram (0.5 %) ointment 0.5 inch ophthalmic (eye) TID 5 Days Qty: 3.5 0RF No Action cholecalciferol (vitamin D3) 50 mcg (2,000 unit) capsule 50 mcg PO DAILY hydroxyzine HCl 10 mg tablet 10 - 20 mg PO BID PRN (Reason: anxiety) miconazole nitrate 2 % powder 1 appl topical BID Qty: 85 3RF medroxyprogesterone [Provera] 10 mg tablet 10 mg PO DAILY Qty: 10 0RF <ADAM Summers - Last Filed: 06/12/22 14:25> Referrals: Sinan Britt [Physician] - (Chronic vision loss right eye, right eye stye) <ADAM Summers - Last Filed: 06/12/22 14:25> Interventions: ED Discharge Assessment Last Done: 06/12/22 16:19 <ADAM Summers - Last Filed: 06/12/22 14:25> Discharge Date/Time: 06/12/22 16:19 <ADAM Summers - Last Filed: 06/12/22 14:25>
[2022-06-12 14:42] LABS: MANUAL DIFF FLAG NO
[2022-06-12 14:43] LABS: Basophils Absolute Auto 0.1 X10*3/uL (0.0-0.2); Eosinophils Absolute Auto 0.2 X10*3/uL (0.0-0.4); Eosinophils Percent Auto 3.1 % (0-4); Hematocrit 39.1 % (37.0-47.0); Hemoglobin 13.2 g/dl (12.0-16.0); Imm Gran Abs Auto 0.01 X10*3/uL (0.00-0.03); Imm Gran Pct Auto 0.1 % (0.0-0.4); Lymphocytes Absolute Auto 1.9 X10*3/uL (1.2-4.9); Lymphocytes Percent Auto 26.5 % (20-40); Mean Corpuscular HGB Conc 33.8 g/dl (31.0-35.0); Mean Corpuscular Volume 85.9 fL (80.0-98.0); Mean Platelet Volume 10.6 fL (9.4-12.3); Monocytes Absolute Auto 0.6 X10*3/uL (0.1-1.2); Monocytes Percent Auto 8.3 % (2-11); Neutrophils Absolute Auto 4.3 x10*3/uL (2.0-8.3); Platelet Count 331 X10*3/uL (160-400); Red Blood Count 4.55 X10*6/uL (4.20-5.50); Red Cell Distribution Width 12.9 % (11.0-16.0); White Blood Count 7.1 X10*3/uL (4.8-10.8)
[2022-06-12 15:00] LABS: Alanine Aminotransferase 54 U/L (0-31); Albumin Level 4.5 g/dL (3.5-5.0); Alkaline Phosphatase 97 U/L (39-117); Anion Gap 14 (12-20); Aspartate Amino Transferase 29 U/L (5-31); Bilirubin Total 0.3 mg/dL (0.0-1.0); Blood Urea Nitrogen 15 mg/dL (9-16); Calcium 9.7 mg/dL (8.4-10.2); Carbon Dioxide 25 mmol/L (22-29); Chloride 106 mmol/L (96-108); Creatinine Clr Calc Pharmacy 97.8; Estimated Glomerular Filt Rate > 60; Glucose Random 90 mg/dL (60-115); Magnesium 2.1 mg/dL (1.6-2.6); Potassium 4.3 mmol/L (3.3-5.1); Sodium 141 mmol/L (135-145)
[2022-06-12] MEDS: Fluorescein Sodium STRIP 1 STRIP EYE-RIGHT (15:55)
[2022-06-12] MEDS: Tetracaine HCl/PF 0.5% Oph Sol 4 ML DROPS 1 DROP EYE-LEFT (15:56)
== END 2022-06-12 16:19 | disposition home or self-care (01) ==
PROVIDERS: Physician Assistant Medical; Emergency Provider Emergency Medicine
DX: H00.011 Hordeolum externum right upper eyelid (principal); H54.61 Unqualified visual loss, right eye, normal vision left eye; I10 Essential (primary) hypertension
CPT/HCPCS: 36415; 80053; 83735; 85025; 99282; 99283

== ENCOUNTER 2023-03-29 14:27 | Outpatient (AMB) | payer MEDICAID, SELFPAY ==
[2023-03-29 14:54] VITALS: BP 144/84; BMI 30.9
--- NOTE | 2023-03-29 14:54 | A.OFFVIS_ITS ---
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 She has not had a mammogram yet her primary care has changed and she has not sure of the name of the person but it is here at the [facility] her last appointment had to get rescheduled. She has not had a mammogram yet she has not having any other health concerns. She does have the history of abnormal Pap smear and LEEP procedure and biopsy. [facility] Medical History HTN (hypertension) Surgical History Hx of section H/O tubal ligation Family History Father No problems noted. Mother No problems noted. Social History Patient Tobacco Use Status: Never used Tobacco Female Reproductive History Menstrual Age of Menarche: 11 Duration of menses: 6-7 days Date of last menstrual period: 02/12/23 control method: other (tubal ligation) Total pregnancies: 2 Full term: 2 Number of Living Children: 2 Date of last pap smear: 10/02/21 (+HPV) History of abnormal pap smear: Yes Physical Exam Vital Signs: Last Vital Signs BP 144/84 H 03/29/23 14:54 BMI result Body Mass Index 30.9 Const General: healthy appearing, comfortable, no acute distress, well developed, alert and Cushingoid facies Nutritional Appearance: average body habitus and overweight Orientation/consciousness: patient oriented x3 Limitations: no limitations HEENT Head: Yes normocephalic Neck Neck: Yes normal visual inspection Chest Other: Patient has small breasts no masses. (She is wondering how they are going to do a mammogram with her breast being so small) Chest palpation & inspection: normal inspection of the chest Breast/axilla inspection: normal inspection of the breasts and normal inspection of the axillae Breast/axilla palpation: normal palpation of the breasts and normal palpation of the axillae Resp Effort & Inspection: normal respiratory effort GI Inspection: Yes normal to inspection, No Abdominal wall edema and No distended Palpation (GI): Soft to palpation and nontender Other: Vagina pink and moist very healthy-appearing mucosa. Clear scant discharge cervix multiparous and scarred by LEEP very deep in pelvis uterus small firm mobile anteverted mobile nontender. Adnexa nontender good tone with Kegel. Patient has a little pink discoloration in groin areas however she says it is because she just shaved and she has no itching there General: Yes bladder normal to palpation External Female Exam: normal external appearance and normal appearance of the urethra Speculum Exam - Vagina: normal appearance of the vagina, normal palpation and normal vaginal discharge Speculum Exam - Cervix: normal appearance of the cervix, normal palpation and nontender Bimanual exam- vagina & uterus: normal bimanual exam, normal palpation, uterine size normal, bladder normal to palpation, consistency normal, normal palpation, uterine mobility normal, uterine shape normal, No Cervical tenderness present, non-tender and no cervical motion tenderness Bimanual Exam- Adnexa, other: normal adnexae, no masses, normal and No adnexal tenderness Neuro General: patient oriented x3 Assessment & Plan Assessment & Plan (1) Potential exposure to STD: Code(s): Z20.2 - Contact with and (suspected) exposure to infections with a predominantly sexual mode of transmission (2) Hx of abnormal cervical Pap smear: Comment: 09/30/2021 Pap is negative with positive HPV Code(s): Z87.42 - Personal history of other diseases of the female genital tract (3) Hx of LEEP (loop electrosurgical excision procedure) of cervix complicating : Comment: 2004 @ [facility]. ca risk hpv 2014, 2019, 2021. ( pap = normal 2021.) Code(s): O34.40 - Maternal care for other abnormalities of cervix, unspecified trimester; Z98.890 - Other specified postprocedural states Plan -----Discussed in this visit the following: healthy balanced diet, regular and consistent exercise, getting recommended health screens, doing the best she can for her particular health concerns, kegel exercises, pap smear screening and followup recommendations, mammography screening and SBE, normal changes in cycles in her life stage--- . Pap smear was done cultures were done patient declines any blood work. I am ordering her mammogram for her to be done sometime this year. She has no other concerns or worries at this time. RTC 1 year. Orders: Orders MM tomosynthesis screening BI Today O34.40 - Maternal care for other abnormalities of cervix, unspecified trimester, Z12.31 - Encounter for screening mammogram for malignant neoplasm of breast, Z20.2 - Contact with and (suspected) exposure to infections with a predominantly sexual mode of transmission, Z87.42 - Personal history of other diseases of the female genital tract, Z98.890 - Other specified postprocedural states Coding Level of Care Code Est Pt Prev Care 40-64y(39471) Diagnoses Potential exposure to STD Z20.2 Hx of abnormal cervical Pap smear Z87.42 Hx of LEEP (loop electrosurgical excision procedure) of cervix complicating O34.40; Z98.890
== END 2023-03-29 15:46 | disposition home or self-care (01) ==
LOC: HO.HWSM 14:28
PROVIDERS: Visit Provider Advanced Practice Midwife
DX: Z20.2 Contact with and (suspected) exposure to infections with a predominantly sexual mode of transmission (principal); Z87.42 Personal history of other diseases of the female genital tract; O34.40 Maternal care for other abnormalities of cervix, unspecified trimester; Z98.890 Other specified postprocedural states
CPT/HCPCS: 99396

== ENCOUNTER 2023-03-29 14:27 | Outpatient (REF) | payer MEDICAID, SELFPAY ==
[2023-03-30 05:54] LABS: CT PCR NOT DETECTED (Not Detect.); NG PCR NOT DETECTED (Not Detect.)
[2023-03-30 12:30] LABS: BV Int Neg Control Negative (Negative); BV Int Pos Control Positive (Positive)
[2023-04-02 05:29] LABS: HPV mRNA E6/E7 rflx Not Detected (Not Detected)
== END 2023-03-29 14:28 | disposition home or self-care (01) ==
LOC: HO.LNP 14:27
PROVIDERS: Visit Provider Advanced Practice Midwife
DX: Z01.419 Encounter for gynecological examination (general) (routine) without abnormal findings (principal); Z87.42 Personal history of other diseases of the female genital tract; Z20.2 Contact with and (suspected) exposure to infections with a predominantly sexual mode of transmission; Z98.890 Other specified postprocedural states
CPT/HCPCS: 0353U; 87480; 87510; 87624; 87660; 88142; 99396

== ENCOUNTER 2023-04-12 12:44 | Outpatient (REF) | payer MEDICAID, SELFPAY ==
--- NOTE | ~2023-04-12 | MM_ITS ---
EXAMINATION: MM SCREENING DIGITAL BREAST TOMOSYNTHESIS, BILATERAL CLINICAL INFORMATION: Screening. Asymptomatic. COMPARISON: Mammography: This is a baseline mammogram. TECHNIQUE: Digital breast tomosynthesis is performed in both the craniocaudal and mediolateral oblique views along with computer-aided detection (CAD). Synthesized 2D images are generated from the tomosynthesis. FINDINGS: The breasts are heterogeneously dense, which may obscure small masses (ACR BI-RADS breast composition Category c). There are no significant masses, abnormal calcifications, or other abnormalities. MM/MM tomosynthesis screening BI IMPRESSION: No mammographic evidence of malignancy. ASSESSMENT: BI-RADS BI-RADS 1 - Negative RECOMMENDATION: Routine annual mammography screening. 1 year F/U This examination should not preclude the clinical evaluation of a suspicious palpable abnormality. This patient's information was entered into a reminder system with a target due date for their next mammogram.
== END 2023-04-12 12:45 | disposition home or self-care (01) ==
LOC: HO.MAMMO 12:44
PROVIDERS: Visit Provider Advanced Practice Midwife
DX: Z12.31 Encounter for screening mammogram for malignant neoplasm of breast (principal)
CPT/HCPCS: 77063; 77067

== ENCOUNTER → 2023-04-12 12:45 | Outpatient (BNV) | payer MEDICAID, SELFPAY | PROVIDERS: Visit Provider Radiology Diagnostic Radiology | DX: Z12.31 Encounter for screening mammogram for malignant neoplasm of breast (principal) | CPT/HCPCS: 77063; 77067 ==

== ENCOUNTER 2023-12-25 05:00 | Emergency (ER) | payer MEDICAID, SELFPAY ==
[2023-12-25 05:01] VITALS: BP 176/116; PULSE 94; RESP 20; TEMP 36.9; O2SAT 98; BMI 29.2
--- NOTE | 2023-12-25 05:43 | ED.EAR ---
HPI - Ear Problem General Chief complaint: Ear Problems Stated complaint: R Ear pain Time Seen by Provider: 12/25/23 05:37 Source: patient Mode of arrival: ambulatory Limitations: no limitations History of Present Illness ED Provider: jaison JACKSON Narrative: Patient's history of hypertension not taking her medications comes here for pain in the right ear started just few hours prior to arrival no history of urine infections patient also does have slight cold symptoms no fever no chills no EAR discharge Related Data Previous Rx's ?Medication ?Instructions ?Recorded amlodipine 10 mg tablet 10 mg PO DAILY #90 tabs 12/25/23 amoxicillin 875 mg-potassium 1 tab PO BID #20 tabs 12/25/23 clavulanate 125 mg tablet ibuprofen 600 mg tablet 600 mg PO Q6H PRN fever or pain 12/25/23 #30 tabs Allergies Allergy/AdvReac Type Severity Reaction Status Date / Time No Known Allergies Allergy Verified 12/25/23 05:03 [No Known Allergies*] Review of Systems Review of Systems: Yes all other systems are reviewed and are negative PMFSH Past Medical History Medical History HTN (hypertension) Surgical History Hx of section H/O tubal ligation Family History Family History Father No problems noted. Mother No problems noted. Social History Social History Unable to assess alcohol history related to: Unknown Patient Tobacco Use Status: Never used Tobacco Use of substances other than those prescribed or required for medical reasons: Unknown Advance Directives: No Physical Exam Vital Signs: Vital Signs: Last Vital Signs Temp 98.4 F 12/25/23 06:24 Pulse 80 12/25/23 06:24 Resp 18 12/25/23 06:24 BP 178/88 H 12/25/23 06:24 Pulse Ox 98 12/25/23 06:24 O2 Del Method Room Air 12/25/23 06:24 BMI result Body Mass Index 29.2 Appearance: Alert. Oriented X3. No acute distress. ENT: Pharynx normal. Oral Mucosa moist wet inflamed bulging with fluid behind EAC normal, left tympanic membrane normal Neck: Normal inspection. Neck supple. CVS: Normal heart rate and rhythm. Pulses normal. Respiratory: No respiratory distress. Equal air entry bilateral, no wheezing/rales/rhonchi Abdomen: Soft and nontender. Bowel sounds are present, Skin: Skin warm and dry. Normal skin color. Normal skin turgor. Extremities: No lower extremity edema. No calf tenderness Neuro: Oriented X 3. Medications Administered Discontinued Medications Generic Name Dose Route Start Last Admin Trade Name Freq PRN Reason Stop Dose Admin Amlodipine Besylate 10 mg 12/25/23 05:42 12/25/23 05:46 Amlodipine Besylate 10 Mg Tablet PO 12/25/23 05:43 10 mg ONCE ONE Administration Protocol Amoxicillin/Clavulanate Potassium 875 mg 12/25/23 05:39 12/25/23 05:46 Amoxicillin/Potassium Clav 875 Mg Tablet PO 12/25/23 05:40 875 mg ONCE ONE Administration Ibuprofen 600 mg 12/25/23 05:39 12/25/23 05:46 Ibuprofen 600 Mg Tablet PO 12/25/23 05:40 600 mg ONCE ONE Administration Morphine Sulfate 15 mg 12/25/23 05:39 12/25/23 05:47 Morphine Sulfate Immed Release 15 Mg Tablet PO 12/25/23 05:40 15 mg ONCE ONE Administration Medical Decision Making Medical Decision Making [facility] Narrative: Patient with uncontrolled hypertension second-degree noncompliant comes here with right otitis patient was prescribe amlodipine pain medication and antibiotics advised to take antibiotics and blood pressure medicine daily and follow with PCP Discharge Plan Discharge Clinical Impression: Otitis media, Hypertension Patient Disposition: Home, Self-Care Instructions: Ear Infection (ED), Chronic Hypertension (DC) Additional Instructions: Take antibiotics and pain medicine as prescribed Start taking your medication for high blood pressure which is very important Follow up with your PCP Check your blood pressure twice a day Normal blood pressure should be less than 135/85 Prescriptions: New amoxicillin-pot clavulanate 875-125 mg tablet 1 tab PO BID Qty: 20 0RF amlodipine 10 mg tablet 10 mg PO DAILY Qty: 90 0RF ibuprofen 600 mg tablet 600 mg PO Q6H PRN (Reason: fever or pain) Qty: 30 0RF Interventions: ED Discharge Assessment Last Done: 12/25/23 06:24 Discharge Date/Time: 12/25/23 06:25 Print Language: Polish
[2023-12-25] MEDS: Amoxicillin/Potassium Clav 875 MG TABLET PO (05:46)
[2023-12-25] MEDS: Ibuprofen 600 MG TABLET PO (05:46)
[2023-12-25] MEDS: amLODIPine Besylate 10 MG TABLET PO (05:46)
[2023-12-25] MEDS: Morphine Sulfate Immed Release 15 MG TABLET PO (05:47)
[2023-12-25 06:24] VITALS: BP 178/88; PULSE 80; RESP 18; TEMP 36.9; O2SAT 98
== END 2023-12-25 06:25 | disposition home or self-care (01) ==
PROVIDERS: Emergency Provider Internal Medicine
DX: H66.91 Otitis media, unspecified, right ear (principal); I10 Essential (primary) hypertension; H92.01 Otalgia, right ear
CPT/HCPCS: 99283; 99284

== ENCOUNTER 2024-06-15 09:09 | Outpatient (REF) | payer MEDICAID, SELFPAY ==
--- OUTSIDE RECORDS SUMMARY | 2024-06-15 12:14 | XMS_ITS | Clinical Summary ---
Author Organization [employer] Address [address] [address] [place] [address] Care Team Providers Care Harness Placer Name Role Phone Opal Centeno NIYA Primary Care Provider [phone] Allergies No known active allergies Medications ibuprofen 600 MG tablet Take 600 mg by mouth every 6 (six) hours if needed for moderate pain or fever. 12/25/19 24 Active Blood Pressure Monitoring (Blood Pressure Cuff) misc 1 Units 2 times daily. 1 each 04/11/19 25 Active amLODIPine (Norvasc) 10 MG tablet Take 1 tablet (10 mg) by mouth Once per day. 90 tablet 1 04/11/19 25 Active cholecalcifero l (Vitamin D-3) 50 MCG (1999 UT) capsule Take by mouth at bed time. 12/21/19 21 025 Discontinued(Me d list cleanup (will not trigger notification to Pharmacy)) Diclofenac Sodium (Voltaren Arthritis Pain) 1 % gel Apply to area as needed 50 g 3 07/29/19 23 025 Discontinued(Me d list cleanup (will not trigger notification to Pharmacy)) Active Problems Problem Noted Date Diagnosed Date Hypertension 04/11/2024 Skin mole 03/11/2023 Assessment & Plan (03/11/2023 12:49 PM EST): Benign Discussed w/ pt about benign fissures of the lesions, she will reconsult PRN if it changes color, shape or size Acute pyelonephritis 03/11/2023 Assessment & Plan (03/11/2023 12:50 PM EST): Treat w/ Cipro 10 days Increase water and cranberry juice intake FU w/ PCP due to CVA tenderness, r/o kidney stone Lower urinary tract symptoms (LUTS) 03/11/2023 Atypical squamous cells of u ndetermined significance (ASCUS) on Papanicolaou smear of cervix 02/05/2021 Hyperlipidemia 11/10/2020 Resolved Problems Problem Noted Date Diagnosed Date Resolved Date Primary hypertension 07/28/2022 023 Encounters Date Type Department Care Team Description 05/15/2024 Patient Outreach [facility] [address] [place] [address] Opal Centeno FNP Pre-visit Planning (SDOH Screening negative and Tobacco screening negative) 05/12/2024 Population Health Risk Score [facility] (C3) Department [address] [phone] Provider, Population Health Generic 04/11/2024 10:40 AM EST Office Visit [facility] [address] [place] [address] Forest Suárez MD Hypertension, unspecified type (Primary Dx) from Last 3 Months Immunizations Name Administration Dates Next Due Influenza injectable quadriv alent preservative free 12/20/2020 Moderna Covid-19 Vaccine 12+ 07/31/2021,07/18/19 21,06/19/2020 Social History Tobacco Use Types Packs/Day Years Used Date Smoking Tobacco: Never Passive Smoke Exposure: Never Smokeless Tobacco: Never Tobacco Cessation:Counseling Given: Not Answered Alcohol Use Standard Drinks/Week Comments Never 0 (1 standard drink = 0.6 oz pur e alcohol) Housing Stability Answer Date Recorded What is your housing situation today? I have jia sing 05/15/[address] you li ve. Do you have problems with any of the following? None of the above 05/15/2024 Food Insecurity Answer Date Recorded Within the past 12 months, y ou worried that your food would run out before you got money to buy more: Never True 05/15/2024 Within the past 12 months,th e food you bought just didn't last and you didn't have enough money to get more: Never True Transportation Answer Date Recorded In the past 12 months, has l ack of transportation kept you from medical appts, meetings, work or from getting things needed for daily living? No 05/15/2024 Utilities Answer Date Recorded In the past 12 months, has t he electric, gas, oil or water company threatened to shut off services in your home? No 05/15/2024 Internet Access Answer Date Recorded Internet Access Q1 Yes 05/15/2024 Internet Access Q2 Not on file 05/15/2024 Comments Unknown Sex and Gender Information Value Date Recorded Sex Assigned at Female 12/29/2021 10:39 AM EDT Legal Sex Female 10:39 AM EDT Gender Identity Female 12/29/2021 10:39 AM EDT Sexual Orientation Straight 12/29/2021 10 :39 AM EDT Last Filed Vital Signs Vital Sign Reading Time Taken Comments Blood Pressure 138/92 04/11/2024 11:04 AM EST Pulse 83 04/11/2024 11:04 AM EST Temperature 36.4 ??C (97.5 ??F) 04/11/2024 11:[address] Respiratory Rate 16 04/11/2024 11:04 AM EST Oxygen Saturation 97% 04/11/2024 11:04 AM EST Inhaled Oxygen Concentration - - Weight 77.6 kg (171 lb) 04/11/2024 11:04 AM EST Height 167.6 cm (5' 6 ) 03/11/2023 12:18 PM EST Body Mass Index 27.6 03/11/2023 12:18 PM EST Plan of Treatment Health Maintenance Due Date Last Done Comments Depression Screening 1985 Alcohol/Substance Use Screening 1995 Family Planning (PISQ) 1998 DTaP/Tdap/Td Vaccines (1 - Tdap) 2002 Hepatitis B Vaccines (1 of 3 - 19+ 3-dose series) 2002 Mammogram 2023 COVID-19 Vaccine ( season) 2023 07/31/2021, 07/17/2020, 06/19/2020 Influenza Vaccine (#1) 2023 12/20/2020 Cervical Cancer Screening 03/29/2024 HPV/Cotest 03/29/2024 03/29/2023, 0 04/2021, 09/30/2021, Additional history exists Pap Smear 03/29/2024 03/29/2023, 0 05/2021, 09/30/2021 SDOH Screening 05/15/2025 05/15/2024 Tobacco Screening 05/15/2025 05/15/2024 Lipid Panel 11/06/2025 11/06/2020 Zoster Vaccines (1 of 2) 2033 RSV Patients and Patients Aged 60 years or older (1 - 1-dose 75+ series) 2058 HIV Screening Completed 11/06/2020 Hepatitis C Screening Completed 11/06/2020 HIB Vaccines Aged Out No longer eligi ble based on patient's age to complete this topic HPV Vaccines Aged Out No longer eligi ble based on patient's age to complete this topic Hepatitis A Vaccines Aged Out No long er eligible based on patient's age to complete this topic IPV Vaccines Aged Out No longer eligi ble based on patient's age to complete this topic Meningococcal Vaccine Aged Out No prashanth mal eligible based on patient's age to complete this topic Pneumococcal Vaccine: Pediatrics (0 to 5 Years) and At-Risk Patients (6 to 49) Years) Aged Out No longer eligible based on patient's age to complete this topic RSV under 20 months Aged Out No longe r eligible based on patient's age to complete this topic Rotavirus Vaccines Aged Out No longer eligible based on patient's age to complete this topic Procedures Procedure Name Priority Date/Time Associated Diagnosis Comments HPV MRNA E6/E7 REFLEX TO HPV 16, 18/45 Routine 03/29/2023 3:26 PM EST PAP SMEAR Routine 03/29/2023 3:26 PM EST ZZZ HISTORICAL HEPATITIS C AB W/REFL TO HCV RNA, QN, PCR Routine 11/06/2020 3:43 PM EDT HIV 1/2 ANTIGEN/ANTIBODY, FOURTH GENERATION W/RFL Routine 11/06/2020 3:43 PM EDT LIPID PANEL, STANDARD Routine 11/06/2020 3:43 PM EDT from Last 3 Months or Most Recently Relevant to Health Maintenance Results * HPV mRNA E6/E7 w/Reflex to HPV Genotypes 16, 18/45 (03/29/2023 3:26 PM EST) HPV nRNA E6/E7 Not Detected Not Detected [facility] Comment:Methodology: Transcr iption-Mediated AmplificationThis assay detects E6/E7 viral messenger RNA (mRNA) from 14high-risk HPV types (16,18,31,33,35,39,45,51,52,56,58,59,66,68).Cervical sources are required for HPV testing.If a vaginal source from a patient who has had atotal hysterectomy with removal of cervix wassubmitted, please contact the testing laboratoryfor alternative testing options.For additional information, please refer tohttp://education.Q-Bot/faq/PDB775t5(This link if provided for information/educational purposes only.)THIS TEST WAS PERFORMED AT:[employer] [place] [id number] HER MD HPV mRNA E6/E7 TNP [facility] HPV 16 [facility] HPV 18/45 RNA [facility] 03/29/2023 3:26 PM EST 03/30/2023 8:00 AM EST us Generic External Data Provider LAB CYTOLOGY VIKY MONTES Final Result [facility] [address] [place] [phone] * Pap Smear (03/29/2023 3:26 PM EST) 03/29/2023 3:26 PM EST 03/30/2023 8:00 AM EST Narrative [facility] - 04/09/2023 3:18 PM EST ----- ------- Name: Meredith Ballard ? Age/Sex: 38/F ? : 1985 Unit#: [id number] ?? Attend Dr: Jenifer Light CNM ?Re03/29/23 ?Status: DEP REF ? Location: HO.LNP ?Disch: ? ----- ------- SPEC : [id number] ? RECD: 03/30/23 ? STATUS: ??SOUT ? REQ NUM: [id number] ? NEHEMIAH: 03/29/23 ? SUBM DR: Jenifer Light CNM ? ENTERED: ??03/30/23 ?SP TYPE: Pap Smr ?OTHR DR: [facility] ? ORDERED: ??Pap Smear ? Interpretation ?? Satisfactory for evaluation. ?? No endocervical cells seen. ?? Negative for intraepithelial lesion or malignancy. ?HPV mRNA E6/E7: ?NOT DETECTED ? This assay detects E6/E7 viral messenger RNA (mRNA) from 14 high-risk HPV types (16, 18, ?? 31, 33, 35, 39, 45, 51, 52, 56, 58, 59, 66, 68) ?? HPV testing performed by [facility], [place], [place]. ??See reference laboratory ?? portion of the EMR for entire report. ?Clinical Information LMP: 02/12/23 Previous PAP test: , HPV+ ? Material Received ?? ThinPrep-Cervical Copies To: ?? [facility] ?? [address] [place] [address] ? Jenifer Light [facility] ?? [address] [place] [address] Dr. [address]rett [address] ?? [place] [address] ?? [phone] ----- ------- Signed (signature on file) GIL Ambrocio ([facility]) 04/09/23 1518 ? ----- ------- ? END OF REPORT ? us Generic External Data Provider LAB CYTOLOGY ORDE RABLES Final Result Performing Organization Address [facility]/ZIP Co de Phone Number [facility] [address] [place] [address] [phone] * HEPATITIS C AB W/REFL TO HCV RNA, QN, PCR (11/06/2020 3:43 PM EDT) HEPATITIS C ANTIBODY NON-REACT VANITA NON-REACT VANITA [facility] INDEX 0.30 <1.00 [facility] Comment: ?? HCV antibody was non-reactive. There is no laboratory ?? evidence of HCV infection. ?? In most cases, no further action is required. However, if recent HCV exposure is suspected, a test for HCV RNA (test code 08166) is suggested. ?? For additional information please refer to http://education.[employer].Health As We Age/faq/LHP07b5 (This link is being provided for informational/ educational purposes only.) ?? 11/06/2020 3:43 PM EDT Latonia Damico FIELD REVIEWER HISTORICAL/NON ORDERABLE LABS Final Result Performing Organization Address [facility] Co de Phone Number [facility] [address] * HIV 1/2 ANTIGEN/ANTIBODY,FOURTH GENERATION W/RFL (11/06/2020 3:43 PM EDT) HIV-1/2 ANTIGEN AND ANTIBODIES, 4TH GENERATION W/ REFLEX NON-REACT VANITA NON-REACT VANITA [facility] Comment: HIV-1 antigen and HIV-1/HIV-2 antibodies were not detected. There is no laboratory evidence of HIV infection. ?? PLEASE NOTE: This information has been disclosed to you from records whose confidentiality may be protected by state law. ??If your state requires such protection, then the state law prohibits you from making any further disclosure of the information without the specific written consent of the person to whom it pertains, or as otherwise permitted by law. A general authorization for the release of medical or other information is NOT sufficient for this purpose. ? For additional information please refer to http://[employer]/faq/GGK872 (This link is being provided for informational/ educational purposes only.) ? The performance of this assay has not been clinically validated in patients less than 2 years old. ?? 11/06/2020 3:43 PM EDT us Latonia Damico [facility] LAB BLOOD ORDERABLES Final Res ult [facility] [address] * (ABNORMAL) LIPID PANEL, STANDARD (11/06/2020 3:43 PM EDT) Chol/HDLC Ratio 4.5 <5.0 (calc) [facility] Cholesterol, Total 241(H) <200 mg/dL [facility] HDL Cholesterol 54 > OR = 50 mg/dL [facility] LDL Cholesterol 156(H) mg/dL (calc) [facility] Comment: Reference range: <100 ?? Desirable range <100 mg/dL for primary prevention; ?? <70 mg/dL for patients with CHD or diabetic patients ?? with > or = 2 CHD risk factors. ?? LDL-C is now calculated using the Guilherme ?? calculation, which is a validated novel method providing ?? better accuracy than the Friedewald equation in the ?? estimation of LDL-C. ?? Morgan MARION et al. ISMAEL. 2013;310(19): 4679-6672 ?? (http://[employer].Health As We Age/faq/VPZ701) Non-HDL Cholesterol 187(H) <130 mg/dL (calc) [facility] Comment: For patients with diabetes plus 1 major ASCVD risk ?? factor, treating to a non-HDL-C goal of <100 mg/dL ?? (LDL-C of <70 mg/dL) is considered a therapeutic ?? option. Triglycerides 172(H) <150 mg/dL [facility] 11/06/2020 3:43 PM EDT Latonia NÚÑEZ LAB BLOOD ORDERABLES Final Res ult [facility] [address] [place] [address], from Last 3 Months or Most Recently Relevant to Health Maintenance Insurance [employer]3 Care Teams Harness Placer Relationship Specialty Start Date End Date Opal Centeno FNP [address], [place] PCP - General Family Medicine 10/26/21
--- OUTSIDE RECORDS SUMMARY | 2024-06-15 12:14 | XMS_ITS | Encounter Summary ---
Author Organization [employer] Address [address] [facility] [address] [place] [address] Care Team Providers Care Billing Assistant Name Role Phone Opal Centeno Primary Care Provider [phone] Encounter Details Date Type Department Care Team ([facility] st Contact Info) Description 11/09/2023 Telephone [facility] MEDICINE [address] [place] [address] Opal Centeno FNP [address] [place] [address] Social History Tobacco Use Types Packs/Day Years Used Date Smoking Tobacco: Never Passive Smoke Exposure: Never Smokeless Tobacco: Never Alcohol Use Standard Drinks/Week Comments Never 0 (1 standard drink = 0.6 oz pur e alcohol) Housing Stability Answer Date Recorded What is your housing situation today? I have jia padgett 01/04/[address] you li ve. Do you have problems with any of the following? None of the above 01/04/2023 Food Insecurity Answer Date Recorded Within the past 12 months, y ou worried that your food would run out before you got money to buy more: Often true 01/04/2023 Within the past 12 months,th e food you bought just didn't last and you didn't have enough money to get more: Often true 07/2022 Transportation Answer Date Recorded In the past 12 months, has l ack of transportation kept you from medical appts, meetings, work or from getting things needed for daily living? No 01/04/2023 Utilities Answer Date Recorded In the past 12 months, has t he [employer], gas, oil or water [email or web address] threatened to shut off services in your home? No 01/04/2023 Comments Unknown Sex and Gender Information Value Date Recorded Sex Assigned at Female 12/29/2021 10:39 AM EDT Legal Sex Female 10:39 AM EDT Gender Identity Female 12/29/2021 10:39 AM EDT Sexual Orientation Straight 12/29/2021 10 :39 AM EDT documented as of this encounter Plan of Treatment Not on file documented as of this encounter Visit Diagnoses Not on filedocumented in this encounter Care Teams Billing Assistant Relationship Specialty Start Date End Date Opal Centeno FNP [address] [place] [address] PCP - General Family Medicine 10/26/21 documented as of this encounter
--- OUTSIDE RECORDS SUMMARY | 2024-06-15 12:14 | XMS_ITS | Encounter Summary ---
Author Organization [employer] [facility] Address [address] [place] [address] [address] [place] [address] Care Team Providers Care Elevator Constructor Hydraulic Name Role Phone Opal Centeno Primary Care Provider [phone] Reason for Visit * Reason Onset Date Comments triage 06/12/2022 Encounter Details Date Type Department Care Team ([facility] st Contact Info) Description 06/12/2022 Telephone [facility] MEDICINE [address] [place] [address] Opal Centeno FNP [address] [place] [address] triage Social History Tobacco Use Types Packs/Day Years Used Date Smoking Tobacco: Never Passive Smoke Exposure: Never Smokeless Tobacco: Never Comments Unknown Sex and Gender Information Value Date Recorded Sex Assigned at Female 12/29/2021 10:39 AM EDT Legal Sex Female 10:39 AM EDT Gender Identity Female 12/29/2021 10:39 AM EDT Sexual Orientation Straight 12/29/2021 10 :39 AM EDT COVID-19 Exposure Response Date Recorded In the last 10 days, have yo u been in contact with someone who was confirmed or suspected to have Coronavirus/COVID-19? No / Unsure 06/12/2022 12:43 PM EDT documented as of this encounter Miscellaneous Notes * Telephone Encounter - Ksenia Gold RN - 06/12/2022 12:16 PM EDT Triage call with [employer] Planning And Analysis Manager ID [id number] Pt reports right eye has blurry vision for the last week. Yesterday this blurred vision got worse. Pt reports a kinjal floating in the eye as well. Pt reports a feeling of pressure in both eyes with some redness / swelling present. Pt reports a headache which comes and goes, tearing a lot and sensitive to light. Pt doesn't wear contacts or glasses and hasn't been seen in the vision center. No aptsavailable. Pt is offered to come to [facility] to be seen and agrees with disposition. Protocol Used: Vision Loss or Change (Adult) Protocol-Based Disposition: See in Office or Video Visit Today Positive Triage Question: * Patient wants to be seen * All higher-acuity triage questions were negative Care Advice Discussed: * Reasons To Call Back - Blurred vision occurs at other times - You become worse * Telephone Encounter - Gisella Mancini - 06/12/2022 10:50 AM EDT Symptom: Vision Loss or Change Outcome: Schedule an urgent appointment (within 1 hour) or talk to a nurse or provider soon Reason: Getting worse The caller accepted this outcome Please contact pt at [phone] documented in this encounter Plan of Treatment Not on file documented as of this encounter Visit Diagnoses Not on filedocumented in this encounter Care Teams Elevator Constructor Hydraulic Relationship Specialty Start Date End Date Opal Centeno FNP [address] [place] [address] PCP - General Family Medicine 10/26/21 documented as of this encounter
--- OUTSIDE RECORDS SUMMARY | 2024-06-15 12:14 | XMS_ITS | Encounter Summary ---
Author Organization [employer] [facility] Address [address] [place] [address] [place], [place] [address] Care Team Providers Care Medical Front Desk Coordinator Name Role Phone Opal Centeno Primary Care Provider [phone] Encounter Details Date Type Department Care Team ([facility] st Contact Info) Description 09/11/2022 Abstract [facility] MEDICINE [address] [place] [address] Opal Centeno FNP [address] [place] [address] Social History Tobacco Use Types Packs/Day Years [...] on file documented as of this encounter Procedures Procedure Name Priority Date/Time Associated Diagnosis Comments PAP/HPV Routine 09/30/2021 documented in this encounter Results * (ABNORMAL) Pap Smear (09/30/2021) Pap Negative for intraephithelial lesion or malignancy Negative for intraephithelial lesion or malignancy, Other HPV Detected [facility] [place] [facility] MAINTENANCE Final Result documented in this encounter Visit Diagnoses Not on filedocumented in this encounter Care Teams Medical Front Desk Coordinator Relationship Specialty Start Date End Date Opal Centeno FNP [address] [place] [address] PCP - General Family Medicine 10/26/21 documented as of this encounter
[2024-06-22 14:04] LABS: HPV Genotype 16 Negative (Negative); HPV Genotype 18 Negative (Negative); HPV High Risk Positive (Negative)
== END 2024-06-15 09:10 | disposition home or self-care (01) ==
LOC: HO.LNP 09:09
PROVIDERS: Visit Provider Advanced Practice Midwife
DX: Z01.419 Encounter for gynecological examination (general) (routine) without abnormal findings (principal); Z87.42 Personal history of other diseases of the female genital tract; Q51.810 Arcuate uterus; O34.40 Maternal care for other abnormalities of cervix, unspecified trimester; Z98.890 Other specified postprocedural states
CPT/HCPCS: 87626; 88175; 99396; 99459

== ENCOUNTER 2024-06-15 09:09 | Outpatient (AMB) | payer MEDICAID, SELFPAY ==
--- NOTE | 2024-06-15 09:09 | A.OFFVIS_ITS ---
Vital Signs 06/15/24 09:13 Height 5 ft 4 in Weight 175 lb BMI 30.0 BP 128/82 Intake Visit Reasons: annual Lapel Padder Blindstitch Required: No Lapel Padder Blindstitch Services: Lapel Padder Blindstitch Present Information Interpreted: clinical only Adapted Physical Education Aide: Adapted Physical Education Aide Present Allergies No Known Allergies [No Known Allergies*] Allergy (Verified 06/15/24 09:13) Medication List - Last Reconciled 06/15/24 by Jenifer Lihgt CNM amlodipine 10 mg PO DAILY Is last menstrual period known: Yes Last menstrual period: 05/23/24 HPI HPI annual: Details: Patient is here for her annual exam today she is doing well and a having any problems at all. She is working on losing weight and has lost about 5 lb she is also on medicine for her blood pressure and that is well-controlled now she said she needs to make an appointment for her mammogram she had the 1 last year and it came out fine. She has not working at the moment because she is caring for her 2 granddaughters. Her son is 23 and her daughter 16. She has no worries about STIs and declines testing. I told her that I will do a Pap out of an abundance of caution because 2 years ago she had positive HPV show up [facility] Medical History HTN (hypertension) Surgical History Hx of section H/O tubal ligation Family History Father No problems noted. Mother No problems noted. Social History Unable to assess alcohol history related to: Unknown Patient Tobacco Use Status: Never used Tobacco Female Reproductive History Menstrual Age of Menarche: 11 Duration of menses: 3-5 days Date of last menstrual period: 05/23/24 control method: permanent sterilization Total pregnancies: 2 Full term: 2 Date of last pap smear: 03/29/23 (neg.-HPV,2021neg,+HPV) Date of Mammogram: 04/12/23 (negative) Physical Exam Vital Signs: Last Vital Signs BP 128/82 06/15/24 09:13 BMI result Body Mass Index 30.0 Const General: healthy appearing, comfortable, no acute distress, well developed and alert Nutritional Appearance: average body habitus Orientation/consciousness: patient oriented x3 Limitations: no limitations HEENT Head: Yes normocephalic Neck Neck: Yes normal visual inspection Chest Chest palpation & inspection: normal inspection of the chest Breast/axilla inspection: normal inspection of the breasts and normal inspection of the axillae Breast/axilla palpation: normal palpation of the breasts and normal palpation of the axillae Resp Effort & Inspection: normal respiratory effort GI Inspection: Yes normal to inspection, No Abdominal wall edema and No distended Palpation (GI): Soft to palpation and nontender Other: External exam within normal limits vagina is pink and moist cervix is deep in pelvis long close thick mobile pink healthy appearing normal appearing white mucus. Uterus small midposition mobile nontender adnexa nontender good tone with Kegel. General: Yes bladder normal to palpation External Female Exam: normal external appearance and normal appearance of the urethra Speculum Exam - Vagina: normal appearance of the vagina, normal palpation and normal vaginal discharge Speculum Exam - Cervix: normal appearance of the cervix, normal palpation and nontender Bimanual exam- vagina & uterus: normal bimanual exam, normal palpation, uterine size normal, bladder normal to palpation, consistency normal, normal palpation, uterine mobility normal, uterine shape normal, No Cervical tenderness present, non-tender and no cervical motion tenderness Bimanual Exam- Adnexa, other: normal adnexae, no masses, normal and No adnexal tenderness Neuro General: patient oriented x3 Results Reviewed Results Reviewed: Patient: Meredith Ballard MR#: [id number] : 1985 Acct:[id number] Age/Sex: 38 / F ADM Date: 04/12/23 Loc: HO.MAMMO Attending Dr: Jenifer Light CNM Ordering Physician: Jenifer Light CNM Results: 1Negative Date of Service: 04/12/23 Follow Up: 1 Year From Original Mammogram Procedure(s): MM tomosynthesis screening BI Accession Number(s): [id number] cc: Jenifer Light CNM~ EXAMINATION: MM SCREENING DIGITAL BREAST TOMOSYNTHESIS, BILATERAL CLINICAL INFORMATION: Screening. Asymptomatic. COMPARISON: Mammography: This is a baseline mammogram. TECHNIQUE: Digital breast tomosynthesis is performed in both the craniocaudal and mediolateral oblique views along with computer-aided detection (CAD). Synthesized 2D images are generated from the tomosynthesis. FINDINGS: The breasts are heterogeneously dense, which may obscure small masses (ACR BI-RADS breast composition Category c). There are no significant masses, abnormal calcifications, or other abnormalities. MM/MM tomosynthesis screening BI IMPRESSION: No mammographic evidence of malignancy. ASSESSMENT: BI-RADS BI-RADS 1 - Negative RECOMMENDATION: Routine annual mammography screening. 1 year F/U This examination should not preclude the clinical evaluation of a suspicious palpable abnormality. This patient's information was entered into a reminder system with a target due date for their next mammogram. Dictated By: Dayan Soni MD Signed By: <Electronically signed by Dayan Soni MD in OV> 04/29/23 1941 DD/ 1310 TD/TT: Talent Associate: Name: ElioMeredith Age/Sex: 38/F Attending: Jenifer Light CNM : 1985 Submitted by: Jenifer Light CNM Copies to: [facility] MR #: [id number] Status: DEP REF Collected: 03/29/23 Location: [facility] Received: 03/30/23 Interpretation Satisfactory for evaluation. No endocervical cells seen. Negative for intraepithelial lesion or malignancy. HPV mRNA E6/E7: NOT DETECTED This assay detects E6/E7 viral messenger RNA (mRNA) from 14 high-risk HPV types (16, 18, 31, 33, 35, 39, 45, 51, 52, 56, 58, 59, 66, 68) HPV testing performed by [facility], [place], [place]. See reference laboratory portion of the EMR for entire report. Clinical Information LMP: 02/12/23 Previous PAP test: , HPV+ Material Received ThinPrep-Cervical Copies To [facility] [address] [place] [address] Jenifer Light CNM [address] [place] [address] Dr. Jarrett [address] [place] [id number] Electronically Signed By: GIL Ambrocio (ASCP) 04/09/23 5767 The Pap Test is a screening procedure with the inherent possibility of both false negative and false positive results. Results should be interpreted in the context of historic and current clinical findings. Reliability of the Pap Test is enhanced by performing the test on a regular repetitive basis. Patient: Meredith Ballard Age/Sex: 38/F MR#: [id number] Page 1 of 1 Name: Meredith Ballard Age/Sex: 36/F Attending: Jenifer Light CNM : 1985 Submitted by: Jenifer Light CNM Copies to: MR #: [id number] Status: DEP REF Collected: 09/30/21 Location: .LAB Received: 10/02/21 Interpretation Satisfactory for evaluation. Negative for intraepithelial lesion or malignancy. HPV mRNA E6/E7: DETECTED This assay detects E6/E7 viral messenger RNA (mRNA) from 14 high-risk HPV types (16, 18, 31, 33, 35, 39, 45, 51, 52, 56, 58, 59, 66, 68) HPV Type 16 RNA: Not Detected HPV Type 18/45 RNA: Not Detected HPV testing performed by [facility], [place], [place]. See reference laboratory portion of the EMR for entire report. Clinical Information LMP: 05/2021 Previous PAP test: 03/17/2019, HPV+ Material Received ThinPrep-Cervical Electronically Signed By: Molly Mendenhall MD 10/20/21 9812 The Pap Test is a screening procedure with the inherent possibility of both false negative and false positive results. Results should be interpreted in the context of historic and current clinical findings. Reliability of the Pap Test is enhanced by performing the test on a regular repetitive basis. Patient: Meredith Ballard Age/Sex: 36/F MR#: [id number] Page 1 of 1 Assessment & Plan Assessment & Plan (1) Women's annual routine gynecological examination: Code(s): Z01.419 - Encounter for gynecological examination (general) (routine) without abnormal findings Category: Medical (2) Hx of abnormal cervical Pap smear: Comment: 09/30/2021 Pap is negative with positive HPV Code(s): Z87.42 - Personal history of other diseases of the female genital tract Category: Medical (3) Hx of LEEP (loop electrosurgical excision procedure) of cervix complicating : Comment: 2003 @ [facility]. ms risk hpv 2014, 2019, 2021. ( 2021 pa neg w oos hpvy,; 03/29/23 pap neg w neg hpv Code(s): O34.40 - Maternal care for other abnormalities of cervix, unspecified trimester; Z98.890 - Other specified postprocedural states Category: Medical (4) Arcuate uterus: Comment: noted on u/s 01/20, (had full term children, c/s for macrosomia gdm.) Code(s): Q51.810 - Arcuate uterus Category: Medical (5) Breast cancer screening: Code(s): Z12.39 - Encounter for other screening for malignant neoplasm of breast Category: Medical Plan -----Discussed in this visit the following: healthy balanced diet, regular and consistent exercise, getting recommended health screens, doing the best she can for her particular health concerns, kegel exercises, pap smear screening and followup recommendations, mammography screening and SBE, normal changes in cycles in her life stage--- . Discussed her improved health and weight loss she feels her herbal tea that she drinks helps her with decreasing her appetite and she is losing weight and her blood pressure is under control and she is feeling good no concerns at all about STIs so she declined testing. Pap smear repeated because of her history of abnormal and the positive HPV in 2021 though last year's was negative.. I am re ordering her mammogram as she is due. Orders: Orders MM tomosynthesis screening BI Today O34.40 - Maternal care for other abnormalities of cervix, unspecified trimester, Q51.810 - Arcuate uterus, Z01.419 - Encounter for gynecological examination (general) (routine) without abnormal findings, Z12.31 - Encounter for screening mammogram for malignant neoplasm of breast, Z12.39 - Encounter for other screening for malignant neoplasm of breast, Z87.42 - Personal history of other diseases of the female genital tract, Z98.890 - Other specified postprocedural states Pap Smear Today Z00.00 - Encounter for general adult medical examination without abnormal findings Coding Level of Care Code Est Pt Prev Care 40-64y(76503) Diagnoses Women's annual routine gynecological examination Z01.419 Hx of abnormal cervical Pap smear Z87.42 Hx of LEEP (loop electrosurgical excision procedure) of cervix complicating O34.40; Z98.890 Arcuate uterus Q51.810 Breast cancer screening Z12.39
[2024-06-15 09:13] VITALS: BP 128/82
== END 2024-06-15 10:38 | disposition home or self-care (01) ==
LOC: HO.HWSM 09:09
PROVIDERS: Visit Provider Advanced Practice Midwife
DX: Z01.419 Encounter for gynecological examination (general) (routine) without abnormal findings (principal); Z87.42 Personal history of other diseases of the female genital tract; O34.40 Maternal care for other abnormalities of cervix, unspecified trimester; Z98.890 Other specified postprocedural states; Q51.810 Arcuate uterus; Z12.39 Encounter for other screening for malignant neoplasm of breast
CPT/HCPCS: 99396; 99459

== ENCOUNTER 2024-07-19 15:23 | Outpatient (REF) | payer MEDICAID, SELFPAY ==
--- OUTSIDE RECORDS SUMMARY | 2024-07-19 15:52 | XMS_ITS | Encounter Summary ---
Author Organization [employer] Address [address] [place] [address] [address] [place] [address] Care Team Providers Care Ignition Mechanic Name Role Phone Opal Centeno Primary Care Provider [phone] Encounter Details Date Type Department Care Team ([facility] st Contact Info) Description 09/11/2022 Abstract [facility] MEDICINE [address] [place] [address] Opal Centeno FNP [address] [place] [address] Social History Tobacco Use Types Packs/Day Years [...] intraephithelial lesion or malignancy, Other HPV Detected [facility] HEALTH MAINTENANCE Final Result documented in this encounter Visit Diagnoses Not on filedocumented in this encounter Care Teams Ignition Mechanic Relationship Specialty Start Date End Date Opal Centeno FNP [address] [place] [address] PCP - General Family Medicine 10/26/21 documented as of this encounter
--- OUTSIDE RECORDS SUMMARY | 2024-07-19 15:52 | XMS_ITS | Clinical Summary ---
Author Organization [employer] Address [address] [facility] 7[address] [place] [address] Care Team Providers Care Printing Supplies Sales Representative Name Role Phone Opal Centeno NIYA Primary Care Provider [phone] Allergies No known active allergies Medications ibuprofen [...] Department Care Team Description 05/15/2024 Patient Outreach [facility] [address] [place] [address] Opal Centeno FNP Pre-visit Planning (SDOH Screening negative and Tobacco screening negative) 05/12/2024 Population Health Risk Score [facility] () Department [address] [phone] Provider, Population Health Generic from [...] HPV nRNA E6/E7 Not Detected Not Detected [facility] Comment:Methodology: Transcr iption-Mediated AmplificationThis assay detects E6/E7 viral messenger RNA (mRNA) from 14high-risk HPV types (16,18,31,33,35,39,45,51,52,56,58,59,66,68).Cervical sources are required for HPV testing.If a vaginal source from a patient who has had atotal hysterectomy with removal of cervix wassubmitted, please contact the testing laboratoryfor alternative testing options.For additional information, please refer tohttp://education.Unioncy/faq/QVP509s4(This link if provided for information/educational purposes only.)THIS TEST WAS PERFORMED AT:[facility] [place] [id number] HER MD HPV mRNA E6/E7 TNP [facility] HPV 16 RNA TNP [facility] HPV 18/45 RNA [facility] 03/29/2023 3:26 PM EST 03/30/2023 8:00 AM EST us Generic External Data Provider LAB CYTOLOGY VIKY MONTES Final Result Performing Organization Address City/State/[facility] Co de Phone Number [facility] [address] [place] [phone] * Pap Smear (03/29/2023 3:26 PM EST) 03/29/2023 3:26 PM EST 03/30/2023 8:00 AM EST Narrative [facility] - 04/09/2023 3:18 PM EST ----- ------- Name: Meredith Ballard ? Age/Sex: 38/F ? : 1985 Unit#: [id number] ?? Attend Dr: Jenifer Light CNM ?Re03/29/23 ?Status: DEP REF ? Location: HO.LNP ?Disch: ? ----- ------- SPEC : [id number] ? RECD: 03/30/23 ? STATUS: ??SOUT ? REQ NUM: [id number] ? NEHEMIAH: 03/29/23152 ? SUBM DR: Jenifer Light CNM ? ENTERED: ??03/30/23 ?SP TYPE: Pap Smr ?OTHR DR: [facility] ? ORDERED: ??Pap Smear ? Interpretation ?? Satisfactory for evaluation. ?? No endocervical cells seen. ?? Negative for intraepithelial lesion or malignancy. ?HPV mRNA E6/E7: ?NOT DETECTED ? This assay detects E6/E7 viral messenger RNA (mRNA) from 14 high-risk HPV types (16, 18, ?? 31, 33, 35, 39, 45, 51, 52, 56, 58, 59, 66, 68) ?? HPV testing performed by [facility], [place], [place]. ??See reference laboratory ?? portion of the EMR for entire report. ?Clinical Information LMP: 02/12/23 Previous PAP test: 84/22, HPV+ ? Material Received ?? ThinPrep-Cervical Copies To: ?? [facility] ?? [address] ?? [place] [address] ? Jenifer Light CNM ?? [address] [facility] ?? [place] [address] ?? [phone] ----- ------- Signed (signature on file) GIL Ambrocio (ASCP) 04/09/23 1518 ? ----- ------- ? END OF REPORT ? us Generic External Data Provider LAB CYTOLOGY VIKY MONTES Final Result [facility] [address] [place], [place] [phone] * HEPATITIS C AB W/REFL TO HCV RNA, QN, PCR (11/06/2020 3:43 PM EDT) HEPATITIS C ANTIBODY NON-REACT VANITA NON-REACT VANITA [facility] INDEX 0.30 <1.00 [facility] Comment: ?? HCV antibody was non-reactive. There is no laboratory ?? evidence of HCV infection. ?? In most cases, no further action is required. However, if recent HCV exposure is suspected, a test for HCV RNA (test code 57902) is suggested. ?? For additional information please refer to http://[employer].Unioncy/faq/GCR52c9 (This link is being provided for informational/ educational purposes only.) ?? 11/06/2020 3:43 PM EDT Latonia Damico [facility] HISTORICAL/NON ORDERABLE LABS Final Result [facility] [address] * HIV 1/2 ANTIGEN/ANTIBODY,FOURTH GENERATION W/RFL (11/06/2020 3:43 PM EDT) Pathologist [facility] HIV-1/2 ANTIGEN AND ANTIBODIES, 4TH GENERATION W/ REFLEX NON-REACT VANITA NON-REACT VANITA [facility] Comment: HIV-1 antigen and HIV-1/HIV-2 [...] ? For additional information please refer to http://[employer].Unioncy/faq/YAT553 (This link is being provided for informational/ educational purposes only.) ? The performance of this assay has not been clinically validated in patients less than 2 years old. ?? 11/06/2020 3:43 PM EDT us Latonia Margaux [facility] LAB BLOOD ORDERABLES Final Res ult Performing Organization Address [facility] Co de Phone Number [facility] [address] * (ABNORMAL) LIPID PANEL, STANDARD (11/06/2020 [...] ?? Morgan SS et al. ISMAEL. 2013;310(19): 6812-8815 ?? (http://education.[employer]/faq/OBR171) Non-HDL Cholesterol 187(H) <130 mg/dL (calc) [facility] Comment: For patients with diabetes plus 1 major ASCVD risk ?? factor, treating to a non-HDL-C goal of <100 mg/dL ?? (LDL-C of <70 mg/dL) is considered a therapeutic ?? option. Triglycerides 172(H) <150 mg/dL [facility] 11/06/2020 3:43 PM EDT us Latonia Akinssch [facility] LAB BLOOD ORDERABLES Final Res ult Performing Organization Address [facility] Co de Phone Number [facility] [address] from Last 3 Months or Most Recently Relevant to Health Maintenance Insurance [facility] C3 Care Teams Printing Supplies Sales Representative Relationship Specialty Start Date End Date Opal Centeno FNP [address] [place] [address] PCP - General Family Medicine 10/26/21
--- OUTSIDE RECORDS SUMMARY | 2024-07-19 15:52 | XMS_ITS | Encounter Summary ---
Author Organization [employer] Address [address] [place] [address] 7 [place] [address] Care Team Providers Care Fertilizer Applicator Name Role Phone Opal Centeno Primary Care Provider [phone] Reason for Visit * Reason Onset Date Comments triage 06/12/2022 Encounter Details Date Type Department Care Team ([facility] st Contact Info) Description 06/12/2022 Telephone [facility] [address] [place] [address] Opal Centeno FNP [address] [place] [address] triage Social History Tobacco Use Types Packs/Day [...] 06/12/2022 12:16 PM EDT Triage call with [employer] Teacher ID [id number] Pt reports right eye has blurry vision [...] aptsavailable. Pt is offered to come to [facility] to be seen and agrees with disposition. [...] accepted this outcome Please contact pt at [phone] documented in this encounter Plan of Treatment Not on file documented as of this encounter Visit Diagnoses Not on filedocumented in this encounter Care Teams Fertilizer Applicator Relationship Specialty Start Date End Date Opal Centeno FNP [address] [place] [phone] PCP - General Family Medicine 10/26/21 documented as of this encounter
--- OUTSIDE RECORDS SUMMARY | 2024-07-19 15:52 | XMS_ITS | Encounter Summary ---
Author Organization [employer] Address [address] [facility] [address] [place] [address] Care Team Providers Care Pigs Feet Cleaner Name Role Phone Opal Centeno Primary Care Provider [phone] Encounter Details Date Type Department Care Team ([facility] st Contact Info) Description 11/09/2023 Telephone [facility] [address] [place] [address] Opal Centeno FNP [address] [place] [address] Social History Tobacco Use Types Packs/Day Years [...] on filedocumented in this encounter Care Teams Pigs Feet Cleaner Relationship Specialty Start Date End Date Opal Centeno FNP [address] [place] [address] PCP - General Family Medicine 10/26/21 documented as of this encounter
== END 2024-07-19 15:24 | disposition home or self-care (01) ==
LOC: HO.LNP 15:23
PROVIDERS: Visit Provider Obstetrics & Gynecology
DX: R87.610 Atypical squamous cells of undetermined significance on cytologic smear of cervix (ASC-US) (principal); R87.810 Cervical high risk human papillomavirus (HPV) DNA test positive
CPT/HCPCS: 57454; 88305

== ENCOUNTER 2024-07-19 15:23 | Outpatient (AMB) | payer MEDICAID, SELFPAY ==
--- OUTSIDE RECORDS SUMMARY | 2024-07-19 15:27 | XMS_ITS | Encounter Summary ---
Author Organization [employer] Address [address] [facility] [address]t [place] [address] Care Team Providers Care Senior Clinical Data Analyst Name Role Phone Opal Centeno Primary Care Provider [phone] Encounter Details Date Type Department Care Team ([facility] st Contact Info) Description 11/09/2023 Telephone [facility] MEDICINE [address] [place] [address] Opal Centeno FNP [address] [place] [address] Social History Tobacco Use Types Packs/Day Years [...] on filedocumented in this encounter Care Teams Senior Clinical Data Analyst Relationship Specialty Start Date End Date Opal Centeno FNP [address] [place] [address] PCP - General Family Medicine 10/26/21 documented as of this encounter
--- OUTSIDE RECORDS SUMMARY | 2024-07-19 15:27 | XMS_ITS | Clinical Summary ---
Author Organization [employer] Address [address] [facility] 7[address] [place] [address] Care Team Providers Care Offshoring Manager Name Role Phone Opal Centeno NIYA Primary Care Provider [phone] Allergies No known active allergies Medications ibuprofen 600 MG tablet Take 600 mg by mouth every 6 (six) hours if needed for moderate pain or fever. 12/25/2023 Active Blood Pressure Monitoring (Blood Pressure Cuff) misc 1 Units 2 times daily. 1 each 04/11/2024 Active amLODIPine (Norvasc) 10 MG tablet Take 1 tablet (10 mg) by mouth Once per day. 90 tablet 1 04/11/2024 Active Active Problems Problem Noted Date Diagnosed Date [...] Department Care Team Description 05/15/2024 Patient Outreach [facility] [address] [place] [address] Opal Centeno FNP Pre-visit Planning (SDOH Screening negative and Tobacco screening negative) 05/12/2024 Population Health Risk Score [facility] () Department [address] [id number] Provider, Population Health Generic from Last 3 Months Immunizations Immunization Administration Dates Next Due Influenza injectable quadriv [...] housing situation today? I have jia padgett 05/15/[address] you li [...] Date Last Done Comments Depression Screening 1985 Disability Screening 1985 Alcohol/Substance Use Screening 1995 Family Planning (PISQ) 1998 DTaP/Tdap/Td Vaccines (1 - Tdap) 2002 Hepatitis B Vaccines (1 of 3 - 19+ 3-dose series) 2002 Mammogram 2023 COVID-19 Vaccine ( season) 2023 07/31/2021, 07/17/2020, 06/19/2020 Influenza Vaccine (#1) 2023 12/20/2020 Cervical Cancer Screening 03/29/2024 HPV/Cotest 03/29/2024 03/29/2023, 08/0 04/2021, 09/30/2021, Additional history exists Pap Smear 03/29/2024 03/29/2023, 08/0 05/2021, 09/30/2021 SDOH Screening 05/15/2025 05/15/2024 Tobacco [...] patient's age to complete this topic Meningococcal B Vaccine Aged Out No l onger eligible based on patient's age to complete [...] nRNA E6/E7 Not Detected Not Detected [facility] Comment:Methodology: Transcr iption-Mediated AmplificationThis assay detects E6/E7 viral messenger RNA (mRNA) from 14high-risk HPV types (16,18,31,33,35,39,45,51,52,56,58,59,66,68).Cervical sources are required for HPV testing.If a vaginal source from a patient who has had atotal hysterectomy with removal of cervix wassubmitted, please contact the testing laboratoryfor alternative testing options.For additional information, please refer tohttp://education.PurePlay/faq/FIE297w5(This link if provided for information/educational purposes only.)THIS TEST WAS PERFORMED AT:[facility] [place] [id number] HER MD HPV mRNA E6/E7 TNP [facility] HPV 16 RNA TNP [facility] HPV 18/45 RNA [facility] 03/29/2023 3:26 PM EST 03/30/2023 8:00 AM EST us Generic External Data Provider LAB CYTOLOGY VIKY MONTES Final Result Performing Organization Address City/State/[facility] Co de Phone Number [facility] [address] [place] [phone] * Pap Smear (03/29/2023 3:26 PM EST) 03/29/2023 3:26 PM EST 03/30/2023 8:00 AM EST Narrative [facility] - 04/09/2023 3:18 PM EST ----- ------- Name: Meredith Ballard ? Age/Sex: 38/F ? : 1985 Unit#: [id number] ?? Attend Dr: Jenifer Light CNM ?Re03/29/23 ?Status: DEP REF ? Location: HO.LNP ?Disch: ? ----- ------- SPEC : [id number] ? RECD: 03/30/23 ? STATUS: ??SOUT ? REQ NUM: [id number] ? NEHEMIAH: 03/29/23152 ? SUBM DR: Jenifer Light CNM ? ENTERED: ??03/30/23 ?SP TYPE: Pap Smr ?OTHR DR: [facility] ? ORDERED: ??Pap Smear ? Interpretation ?? Satisfactory for evaluation. ?? No endocervical cells seen. ?? Negative for intraepithelial lesion or malignancy. ?HPV mRNA E6/E7: ?NOT DETECTED ? This assay detects E6/E7 viral messenger RNA (mRNA) from 14 high-risk HPV types (16, 18, ?? 31, 33, 35, 39, 45, 51, 52, 56, 58, 59, 66, 68) ?? HPV testing performed by [facility], [place], [place]. ??See reference laboratory ?? portion of the EMR for entire report. ?Clinical Information LMP: 02/12/23 Previous PAP test: 84/22, HPV+ ? Material Received ?? ThinPrep-Cervical Copies To: ?? [facility] ?? [address] ?? [place] [address] ? Jenifer Light CNM ?? [address] [facility] ?? [place] [address] ?? [phone] ----- ------- Signed (signature on file) GIL Ambrocio (ASCP) 04/09/23 1518 ? ----- ------- ? END OF REPORT ? us Generic External Data Provider LAB CYTOLOGY VIKY MONTES Final Result [facility] [address] [place], [place] [phone] * HEPATITIS C AB W/REFL TO HCV RNA, QN, PCR (11/06/2020 3:43 PM EDT) HEPATITIS C ANTIBODY NON-REACT VANITA NON-REACT VANITA [facility] INDEX 0.30 <1.00 [facility] Comment: ?? HCV antibody was non-reactive. There is no laboratory ?? evidence of HCV infection. ?? In most cases, no further action is required. However, if recent HCV exposure is suspected, a test for HCV RNA (test code 56843) is suggested. ?? For additional information please refer to http://[employer] Software.PurePlay/faq/NRL81c1 (This link is being provided for informational/ educational purposes only.) ?? 11/06/2020 3:43 PM EDT Latonia Damico [facility] HISTORICAL/NON ORDERABLE LABS Final Result [facility] [address] * HIV 1/2 ANTIGEN/ANTIBODY,FOURTH GENERATION W/RFL (11/06/2020 3:43 PM EDT) Pathologist [facility] HIV-1/2 ANTIGEN AND ANTIBODIES, 4TH GENERATION W/ REFLEX NON-REACT VANITA NON-REACT VANITA [facility] Comment: HIV-1 antigen and HIV-1/HIV-2 [...] ? For additional information please refer to http://[employer] Software.PurePlay/faq/ZJZ993 (This link is being provided for informational/ educational purposes only.) ? The performance of this assay has not been clinically validated in patients less than 2 years old. ?? 11/06/2020 3:43 PM EDT us Latonia Margaux [facility] LAB BLOOD ORDERABLES Final Res ult Performing Organization Address [facility] Co de Phone Number [facility] [address] * (ABNORMAL) LIPID PANEL, STANDARD (11/06/2020 [...] ?? LDL-C is now calculated using the Morgan-Marinelli ?? calculation, which is a validated novel method providing ?? better accuracy than the Friedewald equation in the ?? estimation of LDL-C. ?? Morgan SS et al. ISMAEL. 2013;310(19): 8420-0562 ?? (http://education.Optimum Magazine.Sprig/faq/PKB216) Non-HDL Cholesterol 187(H) <130 mg/dL (calc) [facility] Comment: For patients with diabetes plus 1 major ASCVD risk ?? factor, treating to a non-HDL-C goal of <100 mg/dL ?? (LDL-C of <70 mg/dL) is considered a therapeutic ?? option. Triglycerides 172(H) <150 mg/dL [facility] 11/06/2020 3:43 PM EDT us Latonia Akinssch [facility] LAB BLOOD ORDERABLES Final Res ult Performing Organization Address [facility] Co de Phone Number [facility] [address] from Last 3 Months or Most Recently Relevant to Health Maintenance Insurance [facility] C3 Care Teams Offshoring Manager Relationship Specialty Start Date End Date Opal Centeno FNP [address] [place] [address] PCP - General Family Medicine 10/26/21
--- OUTSIDE RECORDS SUMMARY | 2024-07-19 15:27 | XMS_ITS | Encounter Summary ---
Author Organization [employer] Address [address] [place] [address] 7 [place] [address] Care Team Providers Care Photogrammetric Compilation Specialist Name Role Phone Opal Centeno Primary Care Provider [phone] Reason for Visit * Reason Onset Date Comments triage 06/12/2022 Encounter Details Date Type Department Care Team ([facility] st Contact Info) Description 06/12/2022 Telephone [facility] MEDICINE [address] [place] [address] Opal Centeno FNP [address] [place] [address] triage Social History Tobacco Use Types Packs/Day [...] 06/12/2022 12:16 PM EDT Triage call with [employer] Project Assistant ID [id number] Pt reports right eye has blurry vision [...] aptsavailable. Pt is offered to come to [facility] to be seen and agrees with [...] accepted this outcome Please contact pt at [phone] documented in this encounter Plan of Treatment Not on file documented as of this encounter Visit Diagnoses Not on filedocumented in this encounter Care Teams Photogrammetric Compilation Specialist Relationship Specialty Start Date End Date Opal Centeno FNP [address] [place] [address] PCP - General Family Medicine 10/26/21 documented as of this encounter
--- OUTSIDE RECORDS SUMMARY | 2024-07-19 15:27 | XMS_ITS | Encounter Summary ---
Author Organization [employer] Address [address] [place] [address] 7 [place] [address] Care Team Providers Care Internet Systems Administrator Name Role Phone Opal Centeno Primary Care Provider [phone] Encounter Details Date Type Department Care Team ([facility] st Contact Info) Description 09/11/2022 Abstract [facility] MEDICINE [address] [place] [address] Opal Centeno FNP [address] [place] [address] Social History Tobacco Use Types Packs/Day Years [...] intraephithelial lesion or malignancy, Other HPV Detected [facility] HEALTH MAINTENANCE Final Result documented in this encounter Visit Diagnoses Not on filedocumented in this encounter Care Teams Internet Systems Administrator Relationship Specialty Start Date End Date Opal Centeno FNP [address] [place] [address] PCP - General Family Medicine 10/26/21 documented as of this encounter
--- NOTE | 2024-07-19 15:28 | A.OFFVIS_ITS ---
Vital Signs 07/19/24 15:29 Height 5 ft 4 in Weight 175 lb BMI 30.0 Intake Visit Reasons: colpo Allergies No Known Allergies [No Known Allergies*] Allergy (Verified 06/15/24 09:13) HPI Comments Details: Presenting for abnormal Pap smear showing ASCUS HPV high-risk positive, HPV 16/18 negative [facility] Medical History HTN (hypertension) Surgical History Hx of section H/O tubal ligation Family History Father No problems noted. Mother No problems noted. Social History Unable to assess alcohol history related to: Unknown Patient Tobacco Use Status: Never used Tobacco Female Reproductive History Menstrual Age of Menarche: 11 Review of Systems Const All systems reviewed & are unremarkable except as noted in HPI and below Reports as per HPI and Reports no additional complaints GI Reports no additional complaints Reports no additional complaints Physical Exam Vital Signs: BMI result Body Mass Index 30.0 Office Procedures Colposcopy Colposcopy: Pre-Procedure Counseling: Before beginning the procedure, I conducted comprehensive counseling with the patient. We thoroughly discussed the procedure itself, including its details, alternatives, and all associated risks. This included but not limited to the following complications such as bleeding, infection, and injury to the vagina, bladder, and vessels, as well as the potential need for transfusion with all its associated risks. Subsequently, the patient sign the consent. Pap smear result: Ascus HPV high-risk positive, HPV 16/18 negative Urine test in office = Negative Procedure: During the procedure, the following steps were performed: A speculum was inserted, and acetic acid was applied. Colposcopy was conducted, allowing visualization of the transformation zone. Acetowhite lesions were identified at the 5+ 6+ 7 o'clock position. Cervical biopsies were obtained from the 5+ 6+ 7 o'clock position, followed by an endocervical curettage (ECC). Vaginoscopy of the upper vagina revealed no evidence of aceto-white lesions. Hemostasis was achieved using Monsel solution, and the patient tolerated the procedure well. Post-Procedure Instructions: The patient was advised to promptly contact the office or the after hours answering service or go to the emergency room if experiencing a temperature exceeding 100.4?F, abdominal pain, nausea/vomiting, or bleeding. Additionally, the patient was instructed to abstain from vaginal intercourse and bathtub use. The patient confirmed understanding of these instructions. Discharge Instructions: The patient was instructed to schedule a follow-up appointment in 2 weeks for further evaluation and management. Please note that this note was generated using a voice recognition program, and errors may have occurred during it security consultant. [id number] of cervix including upper vagina with biopsy and ECC Procedure code (CPT) selection complete Assessment & Plan Assessment & Plan (1) ASCUS with positive high risk HPV cervical: Code(s): R87.610 - Atypical squamous cells of undetermined significance on cytologic smear of cervix (ASC-US); R87.810 - Cervical high risk human papillomavirus (HPV) DNA test positive Category: Medical Plan: Discussed with the patient the result of her abnormal pap, its significance, risk of progression, persistence, and regression. the false positive/negative rate of a Pap smear as a screening test in detecting cervical cancer and the indication for a diagnostic test -colposcopy, biopsy, endocervical curettage. The patient verbalized understanding and agreed with the plan, all questions answered. Colpo biopsy ECC done, see procedure note Orders: Orders AMB Colposcopy Today R87.610 - Atypical squamous cells of undetermined significance on cytologic smear of cervix (ASC-US), R87.810 - Cervical high risk human papillomavirus (HPV) DNA test positive Coding Level of Care Code Procedure Only Diagnoses ASCUS with positive high risk HPV cervical R87.610; R87.810 CPT Codes Colposcopy - CPT: 08174-[id number] of cervix including upper vagina with biopsy and ECC ([id number])
== END 2024-07-19 15:49 | disposition home or self-care (01) ==
LOC: HO.HWS 15:24
PROVIDERS: Visit Provider Obstetrics & Gynecology
DX: R87.610 Atypical squamous cells of undetermined significance on cytologic smear of cervix (ASC-US) (principal); R87.810 Cervical high risk human papillomavirus (HPV) DNA test positive
CPT/HCPCS: 57454

== ENCOUNTER 2024-10-04 13:51 | Outpatient (AMB) | payer MEDICAID, SELFPAY ==
--- NOTE | 2024-10-04 13:52 | A.OFFVIS_ITS ---
Intake Visit Reasons: Colpo Results [place] Guide Required: Yes [place] Guide Language: Employment Services Director Services: [place] Guide Present (in person) [place] Guide Name: Kaitlynn MARX Information Interpreted: non-clinical & clinical Allergies No Known Allergies (No Known Allergies*) Allergy (Verified 06/15/24 09:13) HPI Comments Details: Presenting post colpo for follow-up. The patient is doing well with no complaints. The pathology showed the following: A. Endocervix, curettage: Fragments of endocervical and squamous mucosa with acute and chronic inflammation and reactive epithelial changes; negative for squamous intraepithelial lesion. B. Cervix, 5 o'clock, biopsy: Squamous mucosa within normal limits; no endocervical component seen; negative for squamous intraepithelial lesion. C. Cervix, 6 o'clock, biopsy: Chronic cervicitis; negative for squamous intraepithelial lesion. D. Cervix, 7 o'clock, biopsy: Chronic cervicitis; negative for squamous i ntraepithelial lesion. COMMENT: The atypical cells noted in the patient's previous Pap smear ([id number], ASCUS; HPV+) may be represented by the reactive epithelial changes seen above. Clinical correlat ion is advised [facility] Medical History HTN (hypertension) Surgical History Hx of section H/O tubal ligation Family History Father No problems noted. Mother No problems noted. Social History Unable to assess alcohol history related to: Unknown Patient Tobacco Use Status: Never used Tobacco Female Reproductive History Menstrual Age of Menarche: 11 Review of Systems Const All systems reviewed & are unremarkable except as noted in HPI and below Reports as per HPI and Reports no additional complaints GI Reports no additional complaints Reports no additional complaints Telehealth Telehealth Telehealth Platform: Telephone Location of provider rendering services: practice address Location of patient: address on file Patient Identification confirmed using: Name, : Yes Telehealth method: video Patient verbally consented to treatment: Yes Patient verbally consented to billing insurance company: Yes Patient informed of any privacy concerns related to visit: Yes Minutes spent on Phone/Video with Pt.: 2 Assessment & Plan Assessment & Plan (1) ASCUS with positive high risk HPV cervical: Code(s): R87.610 - Atypical squamous cells of undetermined significance on cytologic smear of cervix (ASC-US); R87.810 - Cervical high risk human papillomavirus (HPV) DNA test positive Category: Medical Plan: Discussed with the patient the pathology results of the colposcopy biopsies & endocervical curettage . Discussed with the patient the sensitivity specificity, positive and negative predictive value in detecting cervical cancer in addition discussed the regression, persistence and progression rates. Rec ommended co-testing in 12 months, if cytology and or HPV are abnormal will proceed was colposcopy biopsy and endocervical curettage. Instructions given to the patient to schedule a co test appointment in 1 year. All questions answered the patient verbalized understanding. I spent a total of 20 minutes reviewing the chart, talking to the patient via video and documenting in the medical record. Coding Level of Care Code Tele Est Pt Level 3 (68789) Diagnoses ASCUS with positive high risk HPV cervical R87.610; R87.810
--- OUTSIDE RECORDS SUMMARY | 2024-10-04 14:21 | XMS_ITS | Encounter Summary ---
Author Organization [facility] Address [address] [place] [address] [address] [place] [address] Care Team Providers Care Animation Producer Name Role Phone Opal Centeno Primary Care Provider [phone] Encounter Details Date Type Department Care Team ([facility] st Contact Info) Description 09/11/2022 Abstract [facility] [address] [place] [address] Opal Centeno FNP [address] [place] [address] Social History Tobacco Use Types Packs/Day Years [...] intraephithelial lesion or malignancy, Other HPV Detected [facility] [place] [facility] Final Result documented in this encounter Visit Diagnoses Not on filedocumented in this encounter Care Teams Animation Producer Relationship Specialty Start Date End Date Opal Centeno FNP [address] [place] [address] PCP - General Family Medicine 10/26/21 documented as of this encounter
== END 2024-10-04 14:34 | disposition home or self-care (01) ==
LOC: HO.HWS 13:51
PROVIDERS: Visit Provider Obstetrics & Gynecology
DX: R87.610 Atypical squamous cells of undetermined significance on cytologic smear of cervix (ASC-US) (principal); R87.810 Cervical high risk human papillomavirus (HPV) DNA test positive
CPT/HCPCS: 99213